=== PATIENT | female | born 1985 | race Two or more races ===

== ENCOUNTER 2024-08-15 06:58 | Emergency (ER) | payer MEDICAID, OTHER ==
[~2024-08-15] VITALS: Ht 157.5 cm; Wt 93.0 kg
[2024-08-15 07:36] VITALS: BP 133/92; PULSE 82; RESP 18; TEMP 97.9; O2SAT 98
--- NOTE | 2024-08-15 07:41 | ED.PDOC ---
Eye-HPI HPI Comments A 38 YEAR OLD FEMALE PRESENTS TO THE ED WITH COMPLAINT OF SORE THROAT AND BODY ACHES. PATIENT STATES SHE HAS BEEN EXPERIENCING A SORE THROAT AND BODY ACHES FOR THE PAST 2 DAYS. PATIENT DENIES FEVER, CHILLS, SHORTNESS OF BREATH, CHEST PAIN, ABDOMINAL PAIN, NAUSEA, VOMITING, HEADACHE, OR OTHER COMPLAINTS. NO OTHER SYMPTOMS OR MODIFYING FACTORS AT THIS TIME. PATIENT IS ALERT, ORIENTED X 4, AND HAS STEADY GAIT. Chief Complaint: Body Pain Time Seen by MD: 07:11 Reviewed Notes: Nurses Notes, Medications, Allergies Allergies: Coded Allergies: NO KNOWN ALLERGIES (Unverified , 08/15/24) Home Meds Active Scripts Ibuprofen (Ibuprofen) 800 Mg Tab, 1 TAB PO TID, #30 TAB Prov:EBONI HOLT 08/15/24 Azithromycin (Azithromycin) 500 Mg Tab, 1 TAB PO DAILY, #5 TAB Prov:EBONI HOLT 08/15/24 Information Source: Patient Mode of Arrival: Ambulatory Timing: Days Duration: Since onset, Days Prehospital treatment: None Quality: Pain, Red Lids: Normal Conjunctiva: Normal Cornea: Normal Pupils: Normal EOM: Normal Fundus: Normal Slit lamp exam: Normal Anterior chamber: Normal Mouth Location: Pharynx Mouth: Normal ENT Ear Exam: Normal, Normal, Normal Nose: Normal Sinuses: Normal Oropharynx: Tonsillar hypertrophy, Red Onset: Spontaneous Throat Exposed to: None History of: None Last Tetanus: Unknown Modifying factors: Nothing Associated signs and symptoms: Nasal Symptoms, Sore Throat Past Medical History PAST MEDICAL HISTORY: Denies Surgical History: Denies all surgeries FERMENTING CELLAR DROPPER History: No Pertinent FERMENTING CELLAR DROPPER History Family History Family History: Reviewed,noncontributory to illness Social History Smoker: Non-Smoker Alcohol: Denies ETOH Use Drugs: Denies Drug Use Lives In: Home Constitutional: denies: chills, diaphoresis, fatigue, fever, malaise, sweats, weakness, others EENTM: reports: throat pain, throat swelling, voice changes; denies: blurred vision, double vision, ear bleeding, ear discharge, ear drainage, ear pain, ear ringing, eye pain, eye redness, hearing loss, mouth pain, mouth swelling, nasal discharge, nose bleeding, nose congestion, nose pain, photophobia, tearing, others Respiratory: denies: hemoptysis, orthopnea, SOB at rest, shortness of breath, SOB with excertion, stridor, wheezing, others Cardiovascular: denies: chest pain, dizzy spells, diaphoresis, Dyspnea on exertion, edema, irregular heart beat, left arm pain, lightheadedness, palpitations, PND, syncope, others Gastrointestinal: denies: abdomen distended, abdominal pain, blood streaked bowels, constipated, diarrhea, dysphagia, difficulty swallowing, hematemesis, melena, nausea, poor appetite, poor fluid intake, rectal bleeding, rectal pain, vomiting, others Genitourinary: denies: abnormal vagina bleeding, burning, dyspareunia, dysuria, flank pain, frequency, hematuria, incontinence, pain, , vagina discharge, urgency, others Neurological: denies: dizziness, fainting, headache, left sided numbness, left sided weakness, numbness, paresthesia, pre-existing deficit, right sided numbness, right sided weakness, seizure, speech problems, tingling, tremors, w eakness, others Musculoskeletal: reports: muscle pain; denies: back pain, gout, joint pain, joint swelling, muscle stiffness, neck pain, others Integumetry: denies: bruises, change in color, change in hair/nails, dryness, laceration, lesions, lumps, rash, wounds, others Allergic/Immunocompromised: denies: Difficulty Healing, Frequent Infections, Hives, Itching, others Hematologic/Lymphatic: denies: anemia, blood clots, easy bleeding, easy bruising, swollen glands, others Endocrine: denies: excessive hunger, excessive sweating, excessive thirst, excessive urination, flushing, intolerance to cold, intolerance to heat, unexplained weight gain, unexplained weight loss, others Psychiatric: denies: anxiety, bipolar disorder, depression, hopeless, panic disorder, schizophrenia, sleepless, suicidal, others All Other Systems: Reviewed and Negative Physical Exam General Appearance: No Apparent Distress, Obese HEENT: PERRL/EOMI, Pharyngeal Erythema (TONSILLAR SWELLING, NO EXUDATES. ), TMs Normal Neck: Full Range of Motion, Non-Tender, Normal, Normal Inspection Respiratory: Chest Non-Tender, Expiration, No Accessory Muscle Use, No Respiratory Distress, Rhonchi Cardiovascular: No Edema, No JVD, No Murmur, No Gallop, Normal Peripheral Pulses, Regular Rate/Rhythm Breast Exam: Deferred Gastrointestinal: No Organomegaly, Non Tender, No Pulsatile Mass, Normal Bowel Sounds, Soft Genitalia: Deferred Pelvic: Deferred Rectal: Deferred Extremities: No calf tenderness, Normal capillary refill, Normal inspection, Normal range of motion, Non-tender, No pedal edema Musculoskeletal : Apperance: Normal Neurologic: Alert, 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 Was a procedure done?: No EENT DIFF Eye: N/A Ear: Otitis Media, Pharyngitis, Sinusitis Nose: N/A Mouth: N/A Sore Throat: Pharyngitis, Streptococcal, Viral Pharyngitis, URI X-Ray, Labs, Meds, VS Vital Signs Date Time Temp Pulse Resp B/P (MAP) Pulse Ox O2 Delivery O2 Flow Rate FiO2 08/15/24 07:36 82 18 98 Room Air 08/15/24 07:36 97.9 82 18 133/92 (106) 98 97.9 08/15/24 07:05 97.9 82 18 133/92 (106) 98 X-Ray, Labs, Meds, VS Comment EXTERNAL MEDICAL RECORDS REVIEWED: [NONE] INDEPENDENT HISTORIANS: [NONE] SOCIAL DETERMINANTS OF HEALTH: [NONE] LABS ORDERED: NONE REVIEWED AND INTERPRETED RESULTS: NONE IMAGING ORDERED: NONE TREATMENTS ORDERED: TORADOL 60MG IM PROCEDURES PERFORMED: NONE CRITICAL CARE TIME: NONE I HAVE DISCUSSED THE PATIENT WITH THE ATTENDING PHYSICIAN DR. DIAZ AND HE AGREES WITH THE PATIENT'S PLAN OF CARE AND DISPOSITION. BASED ON HISTORY OF PRESENT ILLNESS, AND PHYSICAL EXAM, PATIENT WILL BE DISCHARGED HOME. SHARED DECISION MAKING: PATIENT INSTRUCTED TO FOLLOW UP WITH PRIMARY CARE PROVIDER IN 1-2 DAYS FOR RE-EVALUATION OF SYMPTOMS. PATIENT VERBALIZES UNDERSTANDING TO RETURN TO ED FOR NEW OR WORSENING SYMPTOMS OR IF FOLLOW UP WITH PCP CANNOT BE OBTAINED. PATIENT FEELS COMFORTABLE GOING HOME AT THIS TIME. ALL QUESTIONS ADDRESSED AT TIME OF DISCHARGE. Time of 1ST Reevaluation: 08:00 Reevaluation 1ST: Improved Patient Education/Counseling: Diagnosis, Treatment, Need For Follow Up Family Education/Counseling: Diagnosis, Treatment, Need For Follow Up Medical Screening: No EMC Exist At This Time Departure 1 Departure Time of Disposition: 08:00 Impression: Primary Impression: Acute tonsillitis Qualified Codes: J03.90 - Acute tonsillitis, unspecified Disposition: HOME / SELF CARE / HOMELESS Condition: Stable Additional Instructions: FOLLOW-UP WITH PCP IN 1 TO 2 DAYS. TAKE MEDICATIONS PRESCRIBED. RETURN TO ED FOR ANY NEW OR WORSENING SYMPTOMS. e-Prescriptions Ibuprofen (Ibuprofen) 800 Mg Tab 1 TAB PO TID, #30 TAB Prov: EBONI HOLT 08/15/24 Azithromycin (Azithromycin) 500 Mg Tab 1 TAB PO DAILY, #5 TAB Prov: EBONI HOLT 08/15/24 Discharged With: Self Critical Care Note Critical Care Time?: No Stability Stability form required: No I personally scribed for EBONI HOLT ([email or web address]) on 08/15/24 at 07:41. Electronically submitted by Drew Tavares ([email or web address]). EBONI HOLT Aug 15, 2024 07:41
[2024-08-15] MEDS ORDERED: IBUP-1456 PO (07:43)
[2024-08-15] MEDS ORDERED: AZIT500T66 PO (07:43)
[2024-08-15] MEDS: KETOROLAC TROMETH 60MG/2ML VIAL IM ONE (07:49)
== END 2024-08-15 07:54 | disposition home or self-care (01) ==
LOC: ER 06:58
DX: J03.90 Acute tonsillitis, unspecified (principal); M79.10 Myalgia, unspecified site; Z79.1 Long term (current) use of non-steroidal anti-inflammatories (NSAID); Z79.2 Long term (current) use of antibiotics
CPT/HCPCS: 96372; 99283; J1885

== ENCOUNTER 2024-12-22 17:41 | Emergency (ER) | payer MEDICAID ==
[~2024-12-22] VITALS: Ht 157.5 cm; Wt 93.2 kg
[~2024-12-22 17:41] MED LIST: AZIT500T66 PO; IBUP-1456 PO
[2024-12-22 18:31] VITALS: BP 129/91; PULSE 87; RESP 17; TEMP 99.2; O2SAT 96
--- NOTE | 2024-12-22 19:08 | DVH ---
US OF THE RIGHT BREAST INDICATION: BREAST LUMP W/YELLOW DISCHARGE TECHNIQUE: Targeted ultrasound of the area of concern in the left upper outer breast COMPARISON: None FINDINGS: No solid or suspicious masses. No areas of architectural distortion. No malignant adenopathy. No dominant cysts are present. IMPRESSION: 1. There is no sonographic evidence for malignancy. 2. No large measurable fluid collection/abscess. No hyperemia 3. Consider correlation with nonemergent diagnostic mammogram. ACR Bi Rads Category:Category 0-"INCOMPLETE" (Needs Additional Imaging Evaluation))
--- NOTE | 2024-12-22 19:10 | ED.PDOC ---
REVENUE AGENT HPI Comments PT REPORTS LEFT BREAST PAIN ASSOCIATED WITH LUMP X 2 WEEKS, YELLOW DISCHARGE FRO M NIPPLE STARTED TODAY, PATIENT SHOWED PICTURE OF DRAINAGE IT WAS DARK YELLOW. DENIES FEVER, CHILLS, , NAUSEA, VOMITING, ABDOMINAL PAIN, CHEST PAIN OR SHORTNESS OF BREATH. Chief Complaint: Breast pain Time Seen by MD: 18:02 Reviewed Notes: Nurses Notes, Medications, Allergies Allergies: Coded Allergies: NO KNOWN ALLERGIES (Unverified , 08/15/24) Home Meds Active Scripts Doxycycline Hyclate (DOXYCYCLINE HYCLATE) 100 Mg Tab, 1 TAB PO BID for 7 Days, #14 TAB Prov:NICOLERAMON MADISON 12/22/24 Ibuprofen (Ibuprofen) 800 Mg Tab, 1 TAB PO TID, #30 TAB Prov:EBONI HOLT 08/15/24 Azithromycin (Azithromycin) 500 Mg Tab, 1 TAB PO DAILY, #5 TAB Prov:EBONI HOLT 08/15/24 Information Source: Patient Past Medical History PAST MEDICAL HISTORY: Denies Surgical History: Denies all surgeries BRICK UNLOADER TENDER History: No Pertinent BRICK UNLOADER TENDER History Family History Family History: Reviewed,noncontributory to illness Social History Smoker: Non-Smoker Alcohol: Denies ETOH Use Drugs: Denies Drug Use Lives In: Home Constitutional: denies: chills, diaphoresis, fatigue, fever, malaise, sweats, weakness, others EENTM: denies: blurred vision, double vision, ear bleeding, ear discharge, ear drainage, ear pain, ear ringing, eye pain, eye redness, hearing loss, mouth pain, mouth swelling, nasal discharge, nose bleeding, nose congestion, nose pain, photophobia, tearing, throat pain, throat swelling, voice changes, others Respiratory: denies: cough, hemoptysis, orthopnea, SOB at rest, shortness of breath, SOB with excertion, stridor, wheezing, others Cardiovascular: denies: chest pain, dizzy spells, diaphoresis, Dyspnea on exertion, edema, irregular heart beat, left arm pain, lightheadedness, palpitations, PND, syncope, others Gastrointestinal: denies: abdomen distended, abdominal pain, blood streaked bowels, constipated, diarrhea, dysphagia, difficulty swallowing, hematemesis, melena, nausea, poor appetite, poor fluid intake, rectal bleeding, rectal pain, vomiting, others Genitourinary: reports: others (BREAST LUMP AND PURULENT DRAINAGE); denies: abnormal vagina bleeding, burning, dyspareunia, dysuria, flank pain, frequency, hematuria, incontinence, pain, , vagina discharge, urgency Neurological: denies: dizziness, fainting, headache, left sided numbness, left sided weakness, numbness, paresthesia, pre-existing deficit, right sided numbness, right sided weakness, seizure, speech problems, tingling, tremors, weakness, others Musculoskeletal: denies: back pain, gout, joint pain, joint swelling, muscle pain, muscle stiffness, neck pain, others Integumetry: denies: bruises, change in color, change in hair/nails, dryness, laceration, lesions, lumps, rash, wounds, others Allergic/Immunocompromised: denies: Difficulty Healing, Frequent Infections, Hives, Itching, others Hematologic/Lymphatic: denies: anemia, blood clots, easy bleeding, easy bruising, swollen glands, others Endocrine: denies: excessive hunger, excessive sweating, excessive thirst, excessive urination, flushing, intolerance to cold, intolerance to heat, unexplained weight gain, unexplained weight loss, others Physical Exam General Appearance: No Apparent Distress, Normal HEENT: Pharynx Normal Neck: Full Range of Motion, Non-Tender Respiratory: Chest Non-Tender, Lungs Clear, No Respiratory Distress, Normal Breath Sounds Cardiovascular: No Edema, No JVD, No Murmur, No Gallop, Normal Peripheral Pulses, Regular Rate/Rhythm Breast Exam: Deferred Gastrointestinal: No Organomegaly, Non Tender, No Pulsatile Mass, Normal Bowel Sounds, Soft Genitalia: Deferred Pelvic: Deferred Rectal: Deferred Extremities: No calf tenderness, Normal capillary refill, Normal inspection, Normal range of motion, Non-tender, No pedal edema Musculoskeletal : Apperance: Normal Neurologic: Alert, 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 Was a procedure done?: No Differential Diagnosis (BRICK UNLOADER TENDER) Comments [facility] X-Ray, Labs, Meds, VS Vital Signs Date Time Temp Pulse Resp B/P (MAP) Pulse Ox O2 Delivery O2 Flow Rate FiO2 5/10/25 18:31 99.2 87 17 129/91 (104) 96 99.2 12/22/24 18:31 87 17 96 Room Air 12/22/24 17:51 99.2 87 17 129/91 (104) 96 99.2 Lab Test 12/22/24 19:07 Range/Units White Blood Count 10.8 4.4-10.8 10^3/uL Red Blood Count 4.79 4.0-5.20 10^6/uL Hemoglobin 14.1 12.2-16.2 g/dL Hematocrit 41.6 36.0-46.0 % Mean Corpuscular Volume 86.9 80.0-100.0 fL Mean Corpuscular Hemoglobin 29.5 28.0-32.0 pg Mean Corpuscular Hemoglobin Concent 33.9 32.0-36.0 g/dL Red Cell Distribution Width 13.3 11.8-14.3 % Platelet Count 231 140-450 10^3/uL Mean Platelet Volume 8.0 6.9-10.8 fL Neutrophils (%) (Auto) 59.3 37.0-80.0 % Lymphocytes (%) (Auto) 30.1 10.0-50.0 % Monocytes (%) (Auto) 6.1 0.0-12.0 % Eosinophils (%) (Auto) 3.8 0.0-7.0 % Basophils (%) (Auto) 0.7 0.0-2.0 % Neutrophils # (Auto) 6.4 1.6-8.6 10 ^3/uL Lymphocytes # (Auto) 3.2 0.4-5.4 10 ^3/uL Monocytes # (Auto) 0.7 0-1.3 10 ^3/uL Eosinophils # (Auto) 0.4 0-0.8 10 ^3/uL Basophils # (Auto) 0.1 0-0.2 10 ^3/uL Nucleated Red Blood Cells 0.1 % Sodium Level 141 136-145 mmol/L Potassium Level 3.7 3.5-5.1 mmol/L Chloride Level 105 98-107 mmol/L Carbon Dioxide Level 27 20-31 mmol/L Anion Gap 9 5-15 Blood Urea Nitrogen 12 9-23 mg/dL Creatinine 0.68 0.550-1.02 mg/dL Glomerular Filtration Rate Calc 114 >90 mL/min BUN/Creatinine Ratio 17.6 10.0-20.0 Serum Glucose 95 74-106 mg/dL Calcium Level 9.8 8.7-10.4 mg/dL Total Bilirubin 0.4 0.2-1.0 mg/dL Aspartate Amino Transferase (AST) 24 13-40 U/L Alanine Aminotransferase (ALT) 35 7-40 U/L Alkaline Phosphatase 55 46-116 U/L Total Protein 8.1 5.7-8.2 g/dL Albumin 4.8 3.2-4.8 g/dL X-Ray, Labs, Meds, VS Comment Ultrasound left breast shows no acute or chronic findings recommendation is outpatient mammogram.. Trial script of antibiotics possible infection. Take medications as prescribed side effects discussed.. Advised to follow up with her PCP in 2 days obtain a outpatient referral for a mammogram. ER return precautions given. Patient indicates understanding agrees with discharge plan of care Time of 1ST Reevaluation: 18:10 Reevaluation 1ST: Unchanged Patient Education/Counseling: Diagnosis, Treatment, Prognosis, Need For Follow Up Family Education/Counseling: No Family Present Departure 1 Departure Time of Disposition: 19:55 Impression: Primary Impression: Breast pain, right Additional Impression: Nipple discharge in female Disposition: 01 HOME / SELF CARE / HOMELESS Condition: Stable e-Prescriptions Doxycycline Hyclate (DOXYCYCLINE HYCLATE) 100 Mg Tab 1 TAB PO BID for 7 Days, #14 TAB Prov: RAMON RIVERA 12/22/24 Discharged With: Self Critical Care Note Critical Care Time?: No Stability Stability form required: RAMON Guzmán December 22, 2024 19:10
[2024-12-22 19:31] LABS: Basophils # (auto) 0.1 10 ^3/uL (0-0.2); Basophils % (auto) 0.7 % (0.0-2.0); Eosinophils # (auto) 0.4 10 ^3/uL (0-0.8); Eosinophils % (auto) 3.8 % (0.0-7.0); Hematocrit 41.6 % (36.0-46.0); Hemoglobin 14.1 g/dL (12.2-16.2); Lymphocytes # (auto) 3.2 10 ^3/uL (0.4-5.4); Lymphocytes % (auto) 30.1 % (10.0-50.0); Mean Corpuscular Hemoglobin 29.5 pg (28.0-32.0); Mean Corpuscular Hgb Conc. 33.9 g/dL (32.0-36.0); Mean Corpuscular Volume 86.9 fL (80.0-100.0); Monocytes # (auto) 0.7 10 ^3/uL (0-1.3); Monocytes % (auto) 6.1 % (0.0-12.0); Neutrophils # (auto) 6.4 10 ^3/uL (1.6-8.6); Neutrophils % (auto) 59.3 % (37.0-80.0); Nucleated Red Blood Cells % 0.1 %; Platelet Count (auto) 231 10^3/uL (140-450); Red Blood Cells 4.79 10^6/uL (4.0-5.20); Red Cell Distribution Width 13.3 % (11.8-14.3); White Blood Cell 10.8 10^3/uL (4.4-10.8)
[2024-12-22 19:48] LABS: Alanine Aminotransferase 35 U/L (7-40); Alkaline Phosphatase 55 U/L (46-116); Anion Gap 9 (5-15); Aspartate Aminotransferase 24 U/L (13-40); BUN/Creatinine Ratio 17.6 (10.0-20.0); Bilirubin, Total 0.4 mg/dL (0.2-1.0); Blood Urea Nitrogen 12 mg/dL (9-23); Calcium 9.8 mg/dL (8.7-10.4); Carbon Dioxide 27 mmol/L (20-31); Chloride 105 mmol/L (98-107); Glucose 95 mg/dL (74-106); Potassium 3.7 mmol/L (3.5-5.1); Sodium 141 mmol/L (136-145); Total Protein 8.1 g/dL (5.7-8.2)
[2024-12-22] MEDS ORDERED: DOXY-286 PO (19:56)
[2024-12-22 19:57] LABS: Albumin 4.8 g/dL (3.2-4.8)
== END 2024-12-22 20:05 | disposition home or self-care (01) ==
LOC: ER 17:41
DX: N64.52 Nipple discharge (principal); N63.20 Unspecified lump in the left breast, unspecified quadrant; Z79.1 Long term (current) use of non-steroidal anti-inflammatories (NSAID); Z79.899 Other long term (current) drug therapy
CPT/HCPCS: 36415; 76642; 80053; 85025

== ENCOUNTER 2025-05-05 21:38 | Emergency (ER) | payer MEDICAID ==
[~2025-05-05] VITALS: Ht 157.5 cm; Wt 82.0 kg
[2025-05-05 23:36] LABS: Hematocrit 39.8 % (36.0-46.0); Hemoglobin 13.2 g/dL (12.2-16.2); Mean Corpuscular Hemoglobin 28.6 pg (28.0-32.0); Mean Corpuscular Volume 86.2 fL (80.0-100.0); Nucleated Red Blood Cells % 0.2 %
--- NOTE | 2025-05-06 00:46 | DVH ---
US OF THE RIGHT BREAST INDICATION: l breast pain r/o abscess TECHNIQUE: All 4 quadrants, subareolar region and axillary region of the RIGHT breast were evaluated with ultrasound COMPARISON: None. FINDINGS: Targeted ultrasound of the left breast was performed Multiple complex fluid collections with surrounding hyperemia and inflammatory changes within the lat eral left breast, largest measuring 3.2 x 3.6 x 0.9 cm. IMPRESSION: Multiple left breast abscesses, largest measuring 3.6 cm.
[2025-05-06] MEDS ORDERED: CLIN1CAP70 PO (01:53)
--- NOTE | 2025-05-06 01:56 | ED.PDOC ---
History of Present Illness HPI Comments 39 y/o F presents with c/c left breast pain, with associated rash and redness. Patient reports 4x day history of symptoms. She states on symptoms following recent lump she discovered in her left breast in December 22, 2024. Denies any further acute symptoms. REVIEW OF SYSTEMS: General: No fever, no chills, or fatigue HEENT: No sore throat, no earache, no congestion, no neck pain. Cardiac: Chest pain. Hypertension.. No palpitations. Lungs: No shortness of breath, no cough. GI: No nausea, no vomiting, no diarrhea, no constipation, no abdominal pain : No dysuria, frequency, or urgency. No hematuria. Musculoskeletal: No joint pain , no joint swelling, no extremity edema. Skin: Left breast redness and rash, with associated pain. no itching. Neuro: No headache, no dizziness, no weakness PHYSICAL EXAM: General: Awake, alert and oriented. No acute distress. Skin: Skin in warm, dry and intact without rashes or lesions. HEENT: The head is normocephalic and atraumatic. Conjunctivae are clear without exudates or hemorrhage. Sclera is non-icteric. Neck: Normal range of motion. No JVD. Cardiac: Regular rate Respiratory: No signs of respiratory distress. No Stridor. Chest: Lateral Left breast with well circumcised area of erythema, tenderness, warmth. No palpable fluctuance or abscess. No discharge from the nipple. Neurological: The patient is awake, alert and oriented to person, place, and time with normal speech. Speech is clear. There is no facial asymmetry. Psychiatric: Appropriate mood and affect. Good judgement and insight. Chief Complaint: Breast pain Time Seen by MD: 00:53 Primary Care Provider: CHRISTINE Reviewed Notes: Nurses Notes, Medications, Allergies Allergies: Coded Allergies: Vancomycin (Verified Allergy, Severe, 05/08/25) Home Meds Active Scripts Polyethylene Glycol 3350 (Miralax) 17 Gm Pow, 17 GM PO DAILYP PRN, #10 POW 0 Refills Prov:JULIA ARAYA 05/09/25 Doxycycline Monohydrate (Doxycycline Monohydrate) 100 Mg Cap, 1 CAP PO BID, #14 CAP Prov:EMILE PARRISH MD 05/09/25 Amoxicillin & Pot Clavulanate (AUGMENTIN TABLET) 875 Mg Tb, 875 MG PO BID for 7 Days, #14 TAB Prov:EMILE PARRISH MD 05/09/25 Reported Medications Pktam-4-Qfaw Ethyl Esters (Utmrw-0-Jdhr Ethyl Esters) 1 Gm Cap, 2 CAP PO DAILY 05/07/25 Ergocalciferol (Vitamin D) 50,000 Unit Cap, 1 CAP PO QWEEKLY 05/07/25 Tirzepatide (Zepbound) 5 Mg/0.5 Ml Inj, 5 MG SC QWEEKLY 05/07/25 Information Source: Patient Mode of Arrival: Ambulatory Past Medical History PAST MEDICAL HISTORY: Denies Surgical History: Denies all surgeries ROUGH ROUNDER MACHINE History: No Pertinent ROUGH ROUNDER MACHINE History Family History Family History: Reviewed,noncontributory to illness Social History Smoker: Non-Smoker Alcohol: Denies ETOH Use Drugs: Denies Drug Use Lives In: Home Was a procedure done? Was a procedure done?: No Differential Dx Considerations may include: abscess X-Ray, Labs, Meds, VS Vital Signs Date Time Temp Pulse Resp B/P (MAP) Pulse Ox O2 Delivery O2 Flow Rate FiO2 05/06/25 02:31 71 18 96 Room Air 05/06/25 02:31 97.7 71 18 117/78 (91) 96 97.7 05/05/25 21:59 99.4 72 16 123/75 96 99.4 Lab Test 05/05/25 23:21 Range/Units White Blood Count 11.6 H 4.4-10.8 10^3/uL Red Blood Count 4.61 4.0-5.20 10^6/uL Hemoglobin 13.2 12.2-16.2 g/dL Hematocrit 39.8 36.0-46.0 % Mean Corpuscular Volume 86.2 80.0-100.0 fL Mean Corpuscular Hemoglobin 28.6 28.0-32.0 pg Mean Corpuscular Hemoglobin Concent 33.2 32.0-36.0 g/dL Red Cell Distribution Width 13.5 11.8-14.3 % Platelet Count 265 140-450 10^3/uL Mean Platelet Volume 8.2 6.9-10.8 fL Neutrophils (%) (Auto) 61.6 37.0-80.0 % Lymphocytes (%) (Auto) 29.0 10.0-50.0 % Monocytes (%) (Auto) 6.0 0.0-12.0 % Eosinophils (%) (Auto) 2.7 0.0-7.0 % Basophils (%) (Auto) 0.7 0.0-2.0 % Neutrophils # (Auto) 7.1 1.6-8.6 10 ^3/uL Lymphocytes # (Auto) 3.4 0.4-5.4 10 ^3/uL Monocytes # (Auto) 0.7 0-1.3 10 ^3/uL Eosinophils # (Auto) 0.3 0-0.8 10 ^3/uL Basophils # (Auto) 0.1 0-0.2 10 ^3/uL Nucleated Red Blood Cells 0.2 % [place] [address] Ph: [phone] DIAGNOSTIC IMAGING Diagnostic Imaging Report : [id number] Signed PATIENT: DRU HALL ACCT: [id number] UNIT: [id number] : 1985 LOC: ER ROOM / BED: / AGE / SEX: 39 / F ADM STATUS: REG ER SERVICE 32 ORDERING PHYSICIAN: NAYANA ORNELAS MD PROCEDURE(s): LBRST - L BREAST ULTRASOUND REASON: l breast pain r/o abscess ORDER NUMBER(s): [id number], ACCESSION NUMBER(s): [id number] US OF THE RIGHT BREAST INDICATION: l breast pain r/o abscess TECHNIQUE: All 4 quadrants, subareolar region and axillary region of the RIGHT breast were evaluated with ultrasound COMPARISON: None. FINDINGS: Targeted ultrasound of the left breast was performed Multiple complex fluid collections with surrounding hyperemia and inflammatory changes within the lateral left breast, largest measuring 3.2 x 3.6 x 0.9 cm. IMPRESSION: Multiple left breast abscesses, largest measuring 3.6 cm. ATED BY: AV ARANGO MD DICTATED DATE/TIME: 05/06/2542 SIGNED BY: AV ARANGO MD SIGNED DATE/TIME: 05/06/2542 CC: Time of 1ST Reevaluation: 01:20 Reevaluation 1ST: Unchanged Patient Education/Counseling: Need For Follow Up Family Education/Counseling: No Family Present SEPSIS Sepsis Screen Date sepsis recognized/suspect: May 05, 2025 Time Sepsis recognized/suspect: 2200 Recent Procedure: No On Antibiotic Therapy: No Respiratory Rate >20: No Heart Rate >90: No Temp<36 C (96.8 F) or >38.3 C: No SBP <90 or MAP <65 mmHG: No New Acute Mental Status Change: No Is the patient on CPAP, BIPAP,: No Physician Orders L Breast Ultrasound (05/05/25 22:33) Vital Signs Date Time Temp Pulse Resp B/P (MAP) Pulse Ox O2 Delivery O2 Flow Rate FiO2 05/06/25 02:31 71 18 96 Room Air 05/06/25 02:31 97.7 71 18 117/78 (91) 96 97.7 05/05/25 21:59 99.4 72 16 123/75 96 99.4 Laboratory Tests Test 05/05/25 23:21 White Blood Count 11.6 10^3/uL (4.4-10.8) H Departure 1 Departure Time of Disposition: 01:49 Impression: Primary Impression: Left breast abscess Additional Impression: Cellulitis of left breast Disposition: 01 HOME / SELF CARE / HOMELESS Condition: Stable Additional Instructions: ED DISCHARGE INSTRUCTIONS Instructions: Please read all instructions provided in this packet carefully. Although you have been discharged from the Emergency Department, this does not mean that you have a "clean bill of health". It is possible that you are in the process of developing a serious illness. This is why you must return to the ED without fail if any new or worsening symptoms (especially if your symptoms include chest pain, trouble breathing, abdominal pain, fever, headache, confusion, trouble seeing, or trouble walking) It is also very important that you see a primary care provider (PCP) within the next 3-5 days to follow up. You may need a referral from your primary care provider to see a specialist to have the abscess drained. Copy of your ultrasound report is included below. If you are unable to get an appointment, return to the ED for re-evaluation. Breast Abscess: Care Instructions Overview An abscess is a pocket of pus formed by infection. Breast abscesses are most common during . You can usually continue to breastfeed your baby in spite of a breast abscess. It will not harm your baby. If your doctor advises you to stop on the affected breast while it heals, you can continue from the healthy breast. Sometimes antibiotics are used to treat a breast abscess. If antibiotics do not cure the abscess, it may need to be drained through a small cut (incision). You may have had a sedative to help you relax. You may be unsteady after having sedation. It can take a few hours for the medicine's effects to wear off. Common side effects of sedation include nausea, vomiting, and feeling sleepy or tired. The doctor has checked you carefully, but problems can develop later. If you notice any problems or new symptoms, get medical treatment right away. Follow-up care is a gallardo part of your treatment and safety. Be sure to make and go to all appointments, and call your doctor if you are having problems. It's also a good idea to know your test results and keep a list of the medicines you take. How can you care for yourself at home? If the doctor gave you a sedative: For 24 hours, don't do anything that requires attention to detail. This includes going to work, making important decisions, and signing any legal documents. It takes time for the medicine's effects to completely wear off. For your safety, do not drive or operate any machinery that could be dangerous. Wait until the medicine wears off and you can think clearly and react easily. If your doctor prescribed antibiotics, take them as directed. Do not stop taking them just because you feel better. You need to take the full course of antibiotics. If your doctor drained the abscess, you may have a tube or gauze in the abscess to allow it to continue draining. Follow your doctor's instructions on bathing and caring for the wound. If you are , continue to regularly breastfeed when your baby is hungry. If you use a breast pump, continue to pump when you need to. But avoid pumping extra. It may cause more inflammation. Your doctor may tell you to discard the milk from the affected breast until the abscess heals. Try feeding from the healthy breast. Then, after your milk is flowing, breastfeed from the affected breast until it feels soft. Hand-express a small amount of breast milk before if your breasts are too full with milk. This will make your breasts less full and may make it easier for your baby to latch on to your breast. Try using a cold compress on your breast to reduce pain and swelling. Put ice or a cold pack on the area for 10 to 20 minutes at a time. Put a thin cloth between the ice and your skin. Be safe with medicines. Read and follow all instructions on the label. If you are not taking a prescription pain medicine, ask your doctor if you can take an [id number] medicine. If your doctor gave you a prescription medicine for pain, take it as prescribed. Store your prescription pain medicines where no one else can get to them. When you are done using them, dispose of them quickly and safely. Your local pharmacy or hospital may have a drop-off site. Do not take two or more pain medicines at the same time unless your doctor told you to. Many pain medicines have acetaminophen, which is Tylenol. Too much acetaminophen (Tylenol) can be harmful. If pus is draining from your infected breast, wash the nipple gently and let it air-dry before you put your bra back on. A disposable breast pad placed in the b ra cup will help absorb the pus. When should you call for help? Call 911 anytime you think you may need emergency care. For example, call if: You have trouble breathing. You passed out (lost consciousness). Call your doctor now or seek immediate medical care if: You have new or worse nausea or vomiting. You have new or worsening symptoms of breast inflammation or infection, such as: Increased pain, swelling, warmth, redness, or a color change on your breast. Red streaks extending from the breast. Pus draining from a breast. A fever. Watch closely for changes in your health, and be sure to contact your doctor if: You do not get better as expected. Credits for Breast Abscess: Care Instructions Current as of: December 17, 2024 Author: [employer] Staff Clinical Review Board All [employer] education is reviewed by a team that includes physicians, nurses, advanced practitioners, registered dieticians, and other healthcare professionals. IMPORTANT WARNING: Many antibiotics, including clindamycin, may cause overgrowth of dangerous bacteria in the large intestine. This may cause mild diarrhea or may cause a life-threatening condition called colitis (inflammation of the large intestine). Clindamycin is more likely to cause this type of infection than many other antibiotics, so it should only be used to treat serious infections that cannot be treated by other antibiotics. Tell your doctor if you have or have ever had colitis or other conditions that affect your stomach or intestines. You may develop these problems during your treatment or up to several months after your treatment has ended. Call your doctor if you experience any of the following symptoms during your treatment with clindamycin or during the first several months after your treatment has finished: watery or bloody stools, diarrhea, stomach cramps, or fever. Talk to your doctor about the risks of taking clindamycin. PROCEDURE(s): LBRST - L BREAST ULTRASOUND REASON: l breast pain r/o abscess ORDER NUMBER(s): [id number], ACCESSION NUMBER(s): [id number] US OF THE RIGHT BREAST INDICATION: l breast pain r/o abscess TECHNIQUE: All 4 quadrants, subareolar region and axillary region of the RIGHT breast were evaluated with ultrasound COMPARISON: None. FINDINGS: Targeted ultrasound of the left breast was performed Multiple complex fluid collections with surrounding hyperemia and inflammatory changes within the lateral left breast, largest measuring 3.2 x 3.6 x 0.9 cm. IMPRESSION: Multiple left breast abscesses, largest measuring 3.6 cm. Comments A 39-year-old female with 4 days of left breast redness, tenderness. Discussed results with the patient. Patient was offered admission for further treatment, observation and evaluation. She is declining drainage of abscess at this time. She would like to try course of antibiotics. Discussed risks, benefits and return precautions with the patient. The patient is declined admission and is requesting to be discharged home to follow up with the primary care provider as an outpatient. Critical Care Note Critical Care Time?: No Stability Stability form required: No Heart Score Heart Score: Heart Score Response (Comments) Value History N/A 0 EKG N/A 0 Age N/A 0 Risk Factors N/A 0 Troponin N/A 0 Total 0 I personally scribed for NAYANA ORNELAS MD ([email or web address]) on 05/06/25 at 07:11. Electronically submitted by Liban Francisco ([email or web address]). NAYANA ORNELAS MD May 06, 2025 01:56
[2025-05-06] MEDS: CLINDAMYCIN HCL 150 MG CAP PO ONE (02:28)
[2025-05-06 02:31] VITALS: BP 117/78; PULSE 71; RESP 18; TEMP 97.7; O2SAT 96
[2025-05-07] MEDS ORDERED: ERGO1CAP12 PO (05:48)
[2025-05-07] MEDS ORDERED: OMEG-86 PO (05:48)
[2025-05-07] MEDS ORDERED: TIRZ5INJ2 SC (05:48)
== END 2025-05-06 02:31 | disposition home or self-care (01) ==
LOC: ER 21:38
DX: N61.1 Abscess of the breast and nipple (principal); N61.0 Mastitis without abscess
CPT/HCPCS: 36415; 76642; 85025

== ENCOUNTER 2025-05-06 17:52 | Inpatient (IN) | payer MEDICAID ==
[~2025-05-06] VITALS: Ht 157.5 cm; Wt 87.7 kg
[~2025-05-06 17:52] MED LIST changes: +CLIN1CAP70 PO
--- NOTE | 2025-05-06 18:54 | ED.PDOC ---
History of Present Illness(SKN HPI Comments This is a 39 year old female presenting to the ED with chief complaint of persistent left breast pain. Patient reports that she was seen in the ED last night where she was diagnosed with multiple abscesses to her left breast and was prescribed oral Clindamycin. Patient relays that she followed up with her PCP today and was advised to come back to the ED for IV antibiotic treatment and surgical evaluation. Patient states that her pain and redness has continued to worsen over time. Patient notes that she currently has a "tracker" placed in her left breast due to a previously diagnosed breast mass that is being monitored and has had a previous infection in the same area. Patient denies any chest pain, SOB, fever, chills, or discharge. Chief Complaint: Breast pain Time Seen by MD: 18:50 Primary Care Provider: CHRISTINE History of Present Illness: Nurses Notes, Medications, Allergies Allergies: Coded Allergies: NO KNOWN ALLERGIES (Unverified , 08/15/24) Home Meds Active Scripts Clindamycin Hcl (Clindamycin Hcl) 300 Mg Cap, 1 CAP PO TID, #30 CAP Prov:NAYANA ORNELAS MD 05/06/25 Ibuprofen (Ibuprofen) 800 Mg Tab, 1 TAB PO TID, #30 TAB Prov:EBONI HOLT 08/15/24 Azithromycin (Azithromycin) 500 Mg Tab, 1 TAB PO DAILY, #5 TAB Prov:EBONI HOLT 08/15/24 Information Source: Patient Mode of Arrival: Ambulatory Severity: Moderate Timing: Days Duration: Since onset Prehospital treatment: None Location: Chest Mechanism: Spontaneous Onset Wound Type: Abscess Tetanus: UTD Past Medical History Past Medical History (Other): Previous left breast cellulitis Surgical History (Other): Laser vein ablation, left breast marker insertion RETAIL LOSS PREVENTION SPECIALIST History: No Pertinent RETAIL LOSS PREVENTION SPECIALIST History Family History Family History: Reviewed,noncontributory to illness Social History Smoker: Non-Smoker Alcohol: Denies ETOH Use Drugs: Denies Drug Use Lives In: Home Constitutional: denies: chills, diaphoresis, fatigue, fever, malaise, sweats, weakness, others EENTM: denies: blurred vision, double vision, ear bleeding, ear discharge, ear drainage, ear pain, ear ringing, eye pain, eye redness, hearing loss, mouth pain, mouth swelling, nasal discharge, nose bleeding, nose congestion, nose pain, photophobia, tearing, throat pain, throat swelling, voice changes, others Respiratory: denies: cough, hemoptysis, orthopnea, SOB at rest, shortness of breath, SOB with excertion, stridor, wheezing, others Cardiovascular: denies: chest pain, dizzy spells, diaphoresis, Dyspnea on exertion, edema, irregular heart beat, left arm pain, lightheadedness, palpitations, PND, syncope, others Gastrointestinal: denies: abdomen distended, abdominal pain, blood streaked bowels, constipated, diarrhea, dysphagia, difficulty swallowing, hematemesis, melena, nausea, poor appetite, poor fluid intake, rectal bleeding, rectal pain, vomiting, others Genitourinary: denies: abnormal vagina bleeding, burning, dyspareunia, dysuria, flank pain, frequency, hematuria, incontinence, pain, , vagina discharge, urgency, others Neurological: denies: dizziness, fainting, headache, left sided numbness, left sided weakness, numbness, paresthesia, pre-existing deficit, right sided numbness, right sided weakness, seizure, speech problems, tingling, tremors, weakness, others Musculoskeletal: reports: others (Left breast pain and redness); denies: back pain, gout, joint pain, joint swelling, muscle pain, muscle stiffness, neck pain Integumetry: denies: bruises, change in color, change in hair/nails, dryness, laceration, lesions, lumps, rash, wounds, others Allergic/Immunocompromised: denies: Difficulty Healing, Frequent Infections, Hives, Itching, others Hematologic/Lymphatic: denies: anemia, blood clots, easy bleeding, easy bruising, swollen glands, others Endocrine: denies: excessive hunger, excessive sweating, excessive thirst, excessive urination, flushing, intolerance to cold, intolerance to heat, unexplained weight gain, unexplained weight loss, others Psychiatric: denies: anxiety, bipolar disorder, depression, hopeless, panic disorder, schizophrenia, sleepless, suicidal, others All Other Systems: Reviewed and Negative Physical Exam General Appearance: No Apparent Distress HEENT: Other (Pupils and face symmetric. Moist mucous membranes.) Neck: Full Range of Motion, Normal Inspection Respiratory: Lungs Clear, No Accessory Muscle Use, No Respiratory Distress, Normal Breath Sounds Cardiovascular: No Edema, No JVD, Regular Rate/Rhythm Breast Exam: (L) Mass, (L) Tenderness, Other (Left breast erythema, induration and tenderness between the 12 o'clock and 3 o'clock position. No discharge.) Gastrointestinal: Non Tender, Soft Genitalia: Deferred Pelvic: Deferred Rectal: Deferred Extremities: Normal inspection, Normal range of motion, Non-tender, No pedal edema Neurologic: Alert (Oriented x4), Normal Affect, Normal Mood, Other (Ambulatory) Cerebellar Function: NOT DONE Reflexes: NOT DONE Skin: Dry, Warm, Other (Depressed erythema, induration and tenderness as above) Lymphatic: NOT DONE Was a procedure done? Was a procedure done?: No Differential Diagnosis (INTG) Differential Diagnosis: Abscess, Cellulitis, Other (Sepsis, among other) X-Ray, Labs, Meds, VS Vital Signs Date Time Temp Pulse Resp B/P (MAP) Pulse Ox O2 Delivery O2 Flow Rate FiO2 05/06/25 17:55 98.8 83 16 126/68 97 98.8 Lab Test 05/06/25 18:57 05/06/25 18:51 Range/Units Lactic Acid Level 0.9 0.4-2.0 mmol/L White Blood Count 9.9 4.4-10.8 10^3/uL Red Blood Count 4.49 4.0-5.20 10^6/uL Hemoglobin 13.1 12.2-16.2 g/dL Hematocrit 38.2 36.0-46.0 % Mean Corpuscular Volume 85.1 80.0-100.0 fL Mean Corpuscular Hemoglobin 29.3 28.0-32.0 pg Mean Corpuscular Hemoglobin Concent 34.4 32.0-36.0 g/dL Red Cell Distribution Width 13.2 11.8-14.3 % Platelet Count 273 140-450 10^3/uL Mean Platelet Volume 8.4 6.9-10.8 fL Neutrophils (%) (Auto) 63.6 37.0-80.0 % Lymphocytes (%) (Auto) 27.0 10.0-50.0 % Monocytes (%) (Auto) 6.0 0.0-12.0 % Eosinophils (%) (Auto) 2.7 0.0-7.0 % Basophils (%) (Auto) 0.7 0.0-2.0 % Neutrophils # (Auto) 6.3 1.6-8.6 10 ^3/uL Lymphocytes # (Auto) 2.7 0.4-5.4 10 ^3/uL Monocytes # (Auto) 0.6 0-1.3 10 ^3/uL Eosinophils # (Auto) 0.3 0-0.8 10 ^3/uL Basophils # (Auto) 0.1 0-0.2 10 ^3/uL Nucleated Red Blood Cells 0.0 % Sodium Level 141 136-145 mmol/L Potassium Level 3.6 3.5-5.1 mmol/L Chloride Level 104 98-107 mmol/L Carbon Dioxide Level 27 20-31 mmol/L Anion Gap 10 5-15 Blood Urea Nitrogen 6 L 9-23 mg/dL Creatinine 0.75 0.550-1.02 mg/dL Glomerular Filtration Rate Calc 104 >90 mL/min BUN/Creatinine Ratio 8.0 L 10.0-20.0 Serum Glucose 96 74-106 mg/dL Calcium Level 9.4 8.7-10.4 mg/dL X-Ray, Labs, Meds, VS Comment 39-year-old female with a history of left breast marker implantation and previous left breast cellulitis referred back to ER by primary doctor for re- evaluation of left breast abscesses diagnosed yesterday Vitals unremarkable Exam remarkable for left breast erythema, induration and tenderness between the 12 o'clock and 3 o'clock position Rhythm strip independently interpreted by me: Sinus rhythm, rate 83, no ectopy. Left breast ultrasound performed on 05/05/2025: PROCEDURE(s): LBRST - L BREAST ULTRASOUND REASON: l breast pain r/o abscess ORDER NUMBER(s): [id number], ACCESSION NUMBER(s): [id number] US OF THE RIGHT BREAST INDICATION: l breast pain r/o abscess TECHNIQUE: All 4 quadrants, subareolar region and axillary region of the RIGHT breast were evaluated with ultrasound COMPARISON: None. FINDINGS: Targeted ultrasound of the left breast was performed Multiple complex fluid collections with surrounding hyperemia and inflammatory changes within the lateral left breast, largest measuring 3.2 x 3.6 x 0.9 cm. IMPRESSION: Multiple left breast abscesses, largest measuring 3.6 cm. , basic metabolic panel and lactate unremarkable Patient treated with the following in the ED: Zosyn 4.5 g IV, Jefferson 5/325 mg p.o. On re-evaluation, pain has improved and vitals were stable. Plan is to admit the patient for IV antibiotics and surgical and/or IR evaluation. Time of 1ST Reevaluation: 19:49 Reevaluation 1ST: Unchanged Patient Education/Counseling: Diagnosis, Treatment Family Education/Counseling: No Family Present SEPSIS Sepsis Screen Date sepsis recognized/suspect: May 06, 2025 Time Sepsis recognized/suspect: 1754 Recent Procedure: No On Antibiotic Therapy: Yes (1 DOSE) Respiratory Rate >20: No Heart Rate >90: No Temp<36 C (96.8 F) or >38.3 C: No SBP <90 or MAP <65 mmHG: No New Acute Mental Status Change: No Is the patient on CPAP, BIPAP,: No SEPSIS EXCLUSION NOTE: Sepsis Exclusion Note: Patient presents with SIRS criteria, but the SIRS response is attributed to [left breast abscess/cellulitis ], not sepsis. Sepsis bundle is not initiated at this time, due to this reason. Further management will focus on the treatment of the above condition (s). Physician Orders Urinalysis (05/06/25 18:29) Blood Culture (05/06/25 18:29) Vital Signs Date Time Temp Pulse Resp B/P (MAP) Pulse Ox O2 Delivery O2 Flow Rate FiO2 05/06/25 17:55 98.8 83 16 126/68 97 98.8 Laboratory Tests Test 05/06/25 18:51 05/06/25 18:57 White Blood Count 9.9 10^3/uL (4.4-10.8) Lactic Acid Level 0.9 mmol/L (0.4-2.0) Departure 1 Departure Time of Disposition: 20:38 Impression: Primary Impression: Left breast abscess Additional Impression: Cellulitis of left breast Disposition: 09 ADMITTED INPATIENT Admit to: Med Surg Condition: Fair Critical Care Note Critical Care Time?: No Stability Stability form required: No Heart Score Heart Score: Heart Score Response (Comments) Value History N/A 0 EKG N/A 0 Age N/A 0 Risk Factors N/A 0 Troponin N/A 0 Total 0 I personally scribed for FITO VALENTIN MD ([email or web address]) on 05/06/25 at 18:54. Electronically submitted by Jovany Estevez ([email or web address]). FITO VALENTIN MD May 06, 2025 18:54
[2025-05-06 19:15] LABS: Hematocrit 38.2 % (36.0-46.0); Hemoglobin 13.1 g/dL (12.2-16.2); Mean Corpuscular Hemoglobin 29.3 pg (28.0-32.0); Mean Corpuscular Volume 85.1 fL (80.0-100.0); Nucleated Red Blood Cells % 0.0 %
[2025-05-06 19:21] LABS: Chloride 104 mmol/L (98-107); Potassium 3.6 mmol/L (3.5-5.1); Sodium 141 mmol/L (136-145)
[2025-05-06 19:22] LABS: Anion Gap 10 (5-15); Carbon Dioxide 27 mmol/L (20-31)
[2025-05-06 19:23] LABS: Calcium 9.4 mg/dL (8.7-10.4)
[2025-05-06 19:27] LABS: BUN/Creatinine Ratio 8.0 (10.0-20.0); Glucose 96 mg/dL (74-106)
[2025-05-06 19:28] LABS: Blood Urea Nitrogen 6 mg/dL (9-23)
--- NOTE | 2025-05-06 23:11 | DVHHPRES ---
History of Present Illness Resident Creating Document: ISADORA ROBLERO RESIDENT History of Present Illness This is a 39 year old female, with significant past medical history of benign breast mass, presented to the ER with chief complain of left breast pain and swelling. She first started having breast pain in December this year, associated with a breast mass and purulent discharge from her nipple. An ultrasound in bilateral mammogram was done revealing a mass, US guided FNA showed benign mass in February 2025. During the workup a tracker was left in place. The patient developed FNA site infection for which she received topical mupirocin. Since last one week, she started complaining of worsening breast pain, which she described as burning, sharp, 7/10, intermittent, radiating from upper outer quadrant to the nipple area. Her pain worsened 2 days back, associated with progressively increasing size of her breast mass, for which she presented to the ER yesterday. She reports she underwent ultrasound revealing breast abscess and was advised IV antibiotics and surgical consultation, patient requested conservative route with oral antibiotics and was sent home with oral cephalexin for 7 days. Due to worsening pain and swelling she presented today to the ER. She also reported increasing size of mass with associated erythema. No purulent discharge or bloody discharge from nipple reported. She denied , or breast trauma. PMHx: Benign left breast mass PSHx: No significant surgical history Family history: Significant for breast cancer in maternal grandmother, leukemia in a paternal grand mother, uterine and ovarian cancer- father's sister Social history: Occasional alcohol use, marijuana (last used few years back). Lives in home with family. LMP 04/11/2025. Full code. next of kin. Home medication: Zepbound, vitamin-D, [place] 3 fatty acid, mupirocin Allergic history: No allergies reported Patient was examined at bedside today. She continues to complain of left breast pain, swelling and redness. Patient is admitted for further management. Family History: Cancer Smoke: No ALCOHOL: occassional Drugs: Marijuana Lives: with Family Review of Systems Constitutional: Yes: Chills Skin: Other Other Left breast: Swelling, erythema, pain Allergies: Coded Allergies: NO KNOWN ALLERGIES (Unverified , 08/15/24) Exam Vital Signs Vital Signs Date Time Temp Pulse Resp B/P (MAP) Pulse Ox O2 Delivery O2 Flow Rate FiO2 05/06/25 17:55 98.8 83 16 126/68 97 98.8 Exam General: Patient alert and oriented in person, place and time. Patient following commands. HEENT: Normocephalic, atraumatic, dry mucous membranes Respiratory/pulmonary: Clear lungs bilaterally, vesicular murmurs present in almost all lung manning, no associated crackles or wheezes. Cardiovascular: Normal heart sounds S1 and S2 with no associated murmurs Abdomen: Abdomen nondistended, there is no pain to palpation in any of the abdominal quadrants, no palpable masses. Extremities: There is no peripheral edema present at the lower extremities. Peripheral Pulses: 3+ Radial (R). 3+ Radial (L). 3+ Dorsalis pedis (R). 3+ Dorsalis pedis(L) Neurological: Intact cranial nerves with no focal neurologic deficits Breast exam: Left breast-upper outer quadrant erythema, elevated temperature, irregular firm mass, tender to palpation. No discharge from nipples seen. No palpable axillary lymph nodes. Labs/Xrays Labs Test 05/06/25 18:57 05/06/25 18:51 Range/Units Lactic Acid Level 0.9 0.4-2.0 mmol/L White Blood Count 9.9 4.4-10.8 10^3/uL Red Blood Count 4.49 4.0-5.20 10^6/uL Hemoglobin 13.1 12.2-16.2 g/dL Hematocrit 38.2 36.0-46.0 % Mean Corpuscular Volume 85.1 80.0-100.0 fL Mean Corpuscular Hemoglobin 29.3 28.0-32.0 pg Mean Corpuscular Hemoglobin Concent 34.4 32.0-36.0 g/dL Red Cell Distribution Width 13.2 11.8-14.3 % Platelet Count 273 140-450 10^3/uL Mean Platelet Volume 8.4 6.9-10.8 fL Neutrophils (%) (Auto) 63.6 37.0-80.0 % Lymphocytes (%) (Auto) 27.0 10.0-50.0 % Monocytes (%) (Auto) 6.0 0.0-12.0 % Eosinophils (%) (Auto) 2.7 0.0-7.0 % Basophils (%) (Auto) 0.7 0.0-2.0 % Neutrophils # (Auto) 6.3 1.6-8.6 10 ^3/uL Lymphocytes # (Auto) 2.7 0.4-5.4 10 ^3/uL Monocytes # (Auto) 0.6 0-1.3 10 ^3/uL Eosinophils # (Auto) 0.3 0-0.8 10 ^3/uL Basophils # (Auto) 0.1 0-0.2 10 ^3/uL Nucleated Red Blood Cells 0.0 % Sodium Level 141 136-145 mmol/L Potassium Level 3.6 3.5-5.1 mmol/L Chloride Level 104 98-107 mmol/L Carbon Dioxide Level 27 20-31 mmol/L Anion Gap 10 5-15 Blood Urea Nitrogen 6 L 9-23 mg/dL Creatinine 0.75 0.550-1.02 mg/dL Glomerular Filtration Rate Calc 104 >90 mL/min BUN/Creatinine Ratio 8.0 L 10.0-20.0 Serum Glucose 96 74-106 mg/dL Calcium Level 9.4 8.7-10.4 mg/dL SEPSIS Sepsis Screen Date sepsis recognized/suspect: May 06, 2025 Time Sepsis recognized/suspect: 1754 Recent Procedure: No On Antibiotic Therapy: Yes (1 DOSE) Respiratory Rate >20: No Heart Rate >90: No Temp<36 C (96.8 F) or >38.3 C: No SBP <90 or MAP <65 mmHG: No New Acute Mental Status Change: No Is the patient on CPAP, BIPAP,: No Physician Orders Urinalysis (05/06/25 18:29) Blood Culture (05/06/25 18:29) Ammonia (05/06/25 22:41) C-Reactive Protein (05/06/25 22:41) Complete Blood Count (05/07/25 04:00) Basic Metabolic Panel (05/07/25 04:00) Drug Screen (05/06/25 22:41) Hemoglobin A1c (05/06/25 22:41) Lipase (05/06/25 22:41) Lipid Panel (05/06/25 22:41) Magnesium (05/06/25 22:41) Phosphorus (05/06/25 22:41) PTPTT (05/06/25 22:41) Thyroid Stimulating Hormone (05/06/25 22:41) Vitamin B12 (05/06/25 22:41) Vitamin D, 25-Hydroxy (05/06/25 22:41) Test, Urine (05/06/25 22:43) Admit (05/06/25 23:07) Allergies (05/06/25 23:07) Code Status (05/06/25 23:07) 0.9% Ns 1000 Ml (05/06/25 23:15) Acetaminophen Tablet (Tylenol Tablet) (05/06/25 23:15) Ondansetron Hcl (Zofran) (05/06/25 23:15) Ascorbic Acid Tablet (Vitamin C Tablet) (05/07/25 10:00) Multiple Vitamin Tablet (Mvi Tab) (05/07/25 10:00) Comprehensive Metabolic Panel (05/07/25 04:00) Npo (Nothing By Mouth) Diet (05/07/25 Breakfast) Condition: Serious (05/06/25 23:07) Morphine Sulfate Injection (05/06/25 23:15) Lovenox 40mg (05/06/25 23:15) Stat Ekg For Chest Pain (05/06/25 23:07) Notify Md Of Changes From Base (05/06/25 23:07) Vital Signs Date Time Temp Pulse Resp B/P (MAP) Pulse Ox O2 Delivery O2 Flow Rate FiO2 05/06/25 17:55 98.8 83 16 126/68 97 98.8 Laboratory Tests Test 05/06/25 18:51 05/06/25 18:57 White Blood Count 9.9 10^3/uL (4.4-10.8) Lactic Acid Level 0.9 mmol/L (0.4-2.0) Assessment/Plan Assessment/Plan Left Breast abscess Left breast Breast cellulitis Benign breast mass Based ultrasound done on 05/05/2025 shows multiple left breast abscesses, largest one being 3.6 cm Blood culture ordered Surgery consulted Wound care consulted IV vancomycin for MRSA coverage Pain management with acetaminophen, morphine as needed, breast elevation and warm compress Obesity Dyslipidemia History of impaired fasting glucose BMI 33.5 Deferred Zepbound during hospital admission, will continue with PCP on discharge Counseled on lifestyle and diet No statins indicated at this time DIET: NPO DVT PROPHYLAXIS: Lovenox CODE STATUS: Goals of care discussed with patient at bedside for more than 36 minutes. Full code DISPOSITION: Med/surge Patient's status and plan discussed with the patient. Case discussed with Dr. Walden. Plan discussed with: Patient (Nurse), Spouse, Other (Nurses) My Orders Orders - ISADORA ROBLERO RESIDENT Procedure Category Date Status Time Ammonia LAB 05/06/25 Logged 22:41 C-Reactive Protein LAB 05/06/25 In Process 22:41 Complete Blood Count LAB 05/07/25 Verified 04:00 Basic Metabolic Panel LAB 05/07/25 Verified 04:00 Drug Screen LAB 05/06/25 Logged 22:41 Hemoglobin A1c LAB 05/06/25 In Process 22:41 Lipase LAB 05/06/25 In Process 22:41 Lipid Panel LAB 05/06/25 In Process 22:41 Magnesium LAB 05/06/25 In Process 22:41 Phosphorus LAB 05/06/25 In Process 22:41 PTPTT LAB 05/06/25 In Process 22:41 Thyroid Stimulating LAB 05/06/25 In Process Hormone 22:41 Vitamin B12 LAB 05/06/25 In Process 22:41 Vitamin D, 25-Hydroxy LAB 05/06/25 In Process 22:41 Test, Urine LAB 05/06/25 Logged 22:43 Admit ADMIT 05/06/25 Verified 23:07 Allergies URIEL 05/06/25 Verified 23:07 Code Status CODE 05/06/25 Verified 23:07 0.9% Ns 1000 Ml PHA 05/06/25 Verified 23:15 Acetaminophen Tablet PHA 05/06/25 Verified (Tylenol Tablet) 23:15 Ondansetron Hcl PHA 05/06/25 Verified (Zofran) 23:15 Ascorbic Acid Tablet PHA 05/07/25 Verified (Vitamin C Tablet) 10:00 Multiple Vitamin PHA 05/07/25 Verified Tablet (Mvi Tab) 10:00 Comprehensive LAB 05/07/25 Verified Metabolic Panel 04:00 Npo (Nothing By DIET 05/07/25 Verified Mouth) Diet Breakfast Condition: Serious URIEL 05/06/25 Verified 23:07 Morphine Sulfate PHA 05/06/25 Verified Injection 23:15 Lovenox 40mg PHA 05/06/25 Verified 23:15 Stat Ekg For Chest URIEL 05/06/25 Verified Pain 23:07 Notify Md Of Changes URIEL 05/06/25 Verified From Base 23:07 Date of Service: May 06, 2025 Billing Provider: GUANACO WALDEN MD Common Visit Codes: [id number] INP/OBS CARE (HIGH) Secondary Visit Codes: [id number] CARE PLAN 30 MINUTES ISADORA ROBLERO RESIDENT May 06, 2025 23:11 LORRAINE ROBLES RESIDENT May 07, 2025 05:26
[2025-05-06 23:15] LABS: Magnesium 1.9 mg/dL (1.6-2.6)
[2025-05-06] MEDS ORDERED: ACETAMINOPHEN 325 MG TAB PO PRN (23:15)
[2025-05-06] MEDS ORDERED: ONDANSETRON HCL 4 MG/2 ML VIAL IV PRN (23:15)
[2025-05-06 23:17] LABS: Cholesterol 166.0 mg/dL (< 200)
[2025-05-06 23:18] LABS: INR 1.0 (0.9-1.15); Partial Thromboplastin Time 29.0 SEC (24.5-34.5); Prothrombin Time 10.6 sec (9.3-11.8)
[2025-05-06 23:20] LABS: HDL Cholesterol 33.0 mg/dL (40-59); Triglycerides 178.0 mg/dL (< 150)
[2025-05-06 23:46] LABS: Alanine Aminotransferase 21.0 U/L (7-40); Albumin 4.4 g/dL (3.2-4.8); Alkaline Phosphatase 62.0 U/L (46-116); Bilirubin, Direct 0.1 mg/dL (<0.3); Bilirubin, Total 0.4 mg/dL (0.2-1.0); Total Protein 7.7 g/dL (5.7-8.2)
[2025-05-06 23:51] LABS: Lipase 56.0 U/L (12-53)
[2025-05-07] VITALS (7 sets, daily range): BP systolic 102–121; BP diastolic 65–94; PULSE 61–103; RESP 14–18; TEMP 97.6–98.3; O2SAT 95–99
[2025-05-07] MEDS: HYDROcodone-ACET 5/325MG TAB PO ONE ×2 (02:48→20:11)
[2025-05-07] MEDS: SODIUM CHLORIDE 0.9% 1,000 ML IV SCH (02:49)
[2025-05-07] MEDS: PIPERACILLIN-TAZO 4.5GM 100 ML IV ONE (02:49)
[2025-05-07] MEDS: VANCOMYCIN 1GM/250ML KIT 250 ML IV ONE (04:54)
[2025-05-07] MEDS ORDERED: ERGO1CAP12 PO (05:48)
[2025-05-07] MEDS ORDERED: OMEG-86 PO (05:48)
[2025-05-07] MEDS ORDERED: TIRZ5INJ2 SC (05:48)
--- NOTE | 2025-05-07 06:50 | DVH ---
CHEST RADIOGRAPH Indication: Breast abscess Technique: Single frontal view of the chest was obtained COMPARISON: None FINDINGS: Lines and Tubes: None Lungs: Diminished lung volumes with concomitant crowding of the pulmonary vasculature. No evidence o f focal consolidation. Pleura: No effusion. No pneumothorax. Cardiomediastinal contours: Unremarkable Bones: Unremarkable IMPRESSION: 1. No evidence of acute cardiopulmonary process.
[2025-05-07 06:55] LABS: Alanine Aminotransferase 16 U/L (7-40); Albumin 4.3 g/dL (3.2-4.8); Alkaline Phosphatase 59 U/L (46-116); Anion Gap 11 (5-15); Calcium 9.0 mg/dL (8.7-10.4); Carbon Dioxide 28 mmol/L (20-31); Chloride 101 mmol/L (98-107); Glucose 80 mg/dL (74-106); Sodium 140 mmol/L (136-145); Total Protein 7.7 g/dL (5.7-8.2)
[2025-05-07 06:56] LABS: Bilirubin, Total 0.5 mg/dL (0.2-1.0)
[2025-05-07 06:57] LABS: Hematocrit 38.7 % (36.0-46.0); Hemoglobin 13.2 g/dL (12.2-16.2); Mean Corpuscular Hemoglobin 29.1 pg (28.0-32.0); Mean Corpuscular Volume 85.4 fL (80.0-100.0); Nucleated Red Blood Cells % 0.1 %
[2025-05-07 07:00] LABS: BUN/Creatinine Ratio 7.1 (10.0-20.0); Blood Urea Nitrogen < 5 mg/dL (9-23); Potassium 3.3 mmol/L (3.5-5.1)
[2025-05-07] MEDS ORDERED: VANCOMYCIN PER PHARMACY 0 MG IV SCH (07:15)
[2025-05-07] MEDS: PIPERACILLIN-TAZOB 3.375GM 100 ML IV ONE (07:15)
[2025-05-07] MEDS ORDERED: POTASSIUM CHL 20MEQ/100ML 100 ML IV SCH (07:30)
[2025-05-07] MEDS ORDERED: VANCOMYCIN 1GM/250ML KIT 250 ML IV SCH (08:30)
[2025-05-07 08:44] LABS: Urine Protein, UAD Negative (Negative)
[2025-05-07] MEDS: PIPERACILLIN-TAZOB 3.375GM 100 ML IV SCH ×2 (09:56→17:38)
[2025-05-07] MEDS: POTASSIUM CHL 20 Meq TABLET PO ONE (09:58)
[2025-05-07] MEDS: MULTIPLE VITAMIN TAB PO SCH (09:58)
[2025-05-07] MEDS: ASCORBIC ACID 500 MG TAB PO SCH (09:58)
[2025-05-07] MEDS: ENOXAPARIN SOD 40 MG/0.4 ML SYRINGE SC SCH (10:00)
[2025-05-07] MEDS ORDERED: POTASSIUM EFFERVESENT TAB 25 MEQ PO SCH (10:00)
[2025-05-07 10:15] LABS: Amphetamine Screen, Urine Neg (NEGATIVE); Barbiturate Scree,Urine Neg (NEGATIVE); Benzodiazephine Screen, Urine Neg (NEGATIVE); Opiate Scree,Urine Neg (NEGATIVE)
[2025-05-07 10:18] LABS: Cannabinoid Screen, Urine Neg (NEGATIVE); Cocaine Screen, Urine Neg (NEGATIVE); Phencyclidine Screen, Urine Neg (NEGATIVE)
--- NOTE | 2025-05-07 11:26 | DVHINCON2 ---
Date of service: May 07, 2025 Family History: FH: thyroid disease G8 FATHER Hypertension G8 MOTHER Allergies: Coded Allergies: NO KNOWN ALLERGIES (Unverified , 08/15/24) Home Meds Reported Medications Kzggz-1-Cddn Ethyl Esters (Cmijj-0-Iimm Ethyl Esters) 1 Gm Cap, 2 CAP PO DAILY 05/07/25 Ergocalciferol (Vitamin D) 50,000 Unit Cap, 1 CAP PO QWEEKLY 05/07/25 Tirzepatide (Zepbound) 5 Mg/0.5 Ml Inj, 5 MG SC QWEEKLY 05/07/25 Current Medications Current Medications Medications (Trade) Dose Ordered Sig/Brenda Route PRN Reason Start Time Stop Time Status Last Admin Sodium Chloride 1,000 ml @ 120 mls/hr Q8H20M IV 05/06/25 23:15 05/07/25 02:49 Acetaminophen (Tylenol Tablet) 325 mg Q4HP PRN PO MILD PAIN (1-3 PAIN SCALE) 05/06/25 23:15 Ondansetron HCl (Zofran) 4 mg Q4HP PRN IV NAUSEA / VOMITING 05/06/25 23:15 Ascorbic Acid (Vitamin C Tablet) 500 mg BID PO 05/07/25 10:00 05/07/25 09:58 Multivitamins (Mvi Tab) 1 tab DAILY PO 05/07/25 10:00 05/07/25 09:58 Morphine Sulfate 2 mg Q4HPRN PRN IV SEVERE PAIN (7-10 PAIN SCALE) 05/06/25 23:15 Enoxaparin Sodium (Lovenox) 40 mg DAILY SC 05/06/25 23:15 Vancomycin HCl 0 ml @ 0 mls/hr UD IV 05/07/25 07:15 05/07/25 08:41 DC Piperacillin Sod/ Tazobactam Sod 100 ml @ 25 mls/hr Q8HR IV 05/07/25 14:00 05/07/25 09:53 DC Potassium Chloride 100 ml @ 50 mls/hr Q2H IV 05/07/25 07:30 05/07/25 09:16 DC Vancomycin HCl 250 ml @ 250 mls/hr Q1H IV 05/07/25 08:30 05/07/25 08:41 DC Clindamycin Phosphate 50 ml @ 50 mls/hr Q8HR IV 05/07/25 14:00 05/07/25 09:54 DC Potassium Bicarbonate (Klor-Con/Ef) 50 meq DAILY PO 05/07/25 10:00 UNV Piperacillin Sod/ Tazobactam Sod 100 ml @ 25 mls/hr Q8HR IV 05/07/25 10:00 05/07/25 09:56 Clindamycin Phosphate 50 ml @ 50 mls/hr Q8H IV 05/07/25 15:00 Vital Signs Vital Signs Date Time Temp Pulse Resp B/P (MAP) Pulse Ox O2 Delivery O2 Flow Rate FiO2 05/07/25 09:00 97.8 67 16 109/65 (80) 99 97.8 05/07/25 02:22 Room Air* 0 21 Labs/Diagnostic Data Labs Test 05/07/25 06:00 05/07/25 05:51 05/06/25 23:24 05/06/25 18:57 Range/Units Urine Color Light-yellow Yellow Urine Clarity Clear Clear Urine pH 5.5 5.0-9.0 Urine Specific [place] 1.016 1.001-1.035 Urine Protein Negative Negative Urine Ketones Negative Negative Urine Blood Negative Negative /uL Urine Nitrite 2+ H Negative Urine Bilirubin Negative Negative Urine Urobilinogen Normal Negative mg/dL Urine Leukocyte Esterase Negative Negative /uL Urine RBC None seen 0 - 4 /hpf Urine Microscopic WBC 1 0-5 /HPF Urine Squamous Epithelial Cells Few <5 /hpf Urine Bacteria Few H None Seen /hpf Urine Glucose Normal Normal mg/dL Urine Test Negative Negative Urine Opiates Screen Neg NEGATIVE Urine Fentanyl Screen Neg NEGATIVE Urine Barbiturates Screen Neg NEGATIVE Urine Phencyclidine Screen Neg NEGATIVE Urine Amphetamines Screen Neg NEGATIVE Urine Benzodiazepines Screen Neg NEGATIVE Urine Cocaine Screen Neg NEGATIVE Urine Cannabinoids Screen Neg NEGATIVE White Blood Count 7.1 # 4.4-10.8 10^3/uL Red Blood Count 4.53 4.0-5.20 10^6/uL Hemoglobin 13.2 12.2-16.2 g/dL Hematocrit 38.7 36.0-46.0 % Mean Corpuscular Volume 85.4 80.0-100.0 fL Mean Corpuscular Hemoglobin 29.1 28.0-32.0 pg Mean Corpuscular Hemoglobin Concent 34.1 32.0-36.0 g/dL Red Cell Distribution Width 13.2 11.8-14.3 % Platelet Count 253 140-450 10^3/uL Mean Platelet Volume 8.5 6.9-10.8 fL Neutrophils (%) (Auto) 62.7 37.0-80.0 % Lymphocytes (%) (Auto) 31.9 10.0-50.0 % Monocytes (%) (Auto) 2.1 0.0-12.0 % Eosinophils (%) (Auto) 2.8 0.0-7.0 % Basophils (%) (Auto) 0.5 0.0-2.0 % Neutrophils # (Auto) 4.5 1.6-8.6 10 ^3/uL Lymphocytes # (Auto) 2.3 0.4-5.4 10 ^3/uL Monocytes # (Auto) 0.2 0-1.3 10 ^3/uL Eosinophils # (Auto) 0.2 0-0.8 10 ^3/uL Basophils # (Auto) 0 0-0.2 10 ^3/uL Nucleated Red Blood Cells 0.1 % Sodium Level 140 136-145 mmol/L Potassium Level 3.3 L 3.5-5.1 mmol/L Chloride Level 101 98-107 mmol/L Carbon Dioxide Level 28 20-31 mmol/L Anion Gap 11 5-15 Blood Urea Nitrogen < 5 L 9-23 mg/dL Creatinine 0.70 0.550-1.02 mg/dL Glomerular Filtration Rate Calc 113 >90 mL/min BUN/Creatinine Ratio 7.1 L 10.0-20.0 Serum Glucose 80 74-106 mg/dL Calcium Level 9.0 8.7-10.4 mg/dL Total Bilirubin 0.5 0.2-1.0 mg/dL Aspartate Amino Transferase (AST) 14 13-40 U/L Alanine Aminotransferase (ALT) 16 7-40 U/L Alkaline Phosphatase 59 46-116 U/L Total Protein 7.7 5.7-8.2 g/dL Albumin 4.3 3.2-4.8 g/dL Direct Bilirubin 0.1 <0.3 mg/dL Ammonia < 10 L 11-32 umol/L Lactic Acid Level 0.9 0.4-2.0 mmol/L Test 05/06/25 18:51 Range/Units Prothrombin Time 10.6 9.3-11.8 sec Prothrombin Time INR 1.00 0.9-1.15 Activated Partial Thromboplast Time 29.0 24.5-34.5 SEC Hemoglobin A1c 5.0 <5.7 % A1C Phosphorus Level 3.7 2.4-5.1 mg/dL Magnesium Level 1.9 1.6-2.6 mg/dL C-Reactive Protein High Sensitivity 0.44 <1.0 mg/dL Triglycerides Level 178 H < 150 mg/dL Cholesterol Level 166 < 200 mg/dL LDL Cholesterol 121 H < 100 mg/dL HDL Cholesterol 33 L 40-59 mg/dL Lipase 56 H 12-53 U/L Vitamin B12 Level 621 211-911 pg/mL Vitamin D 25-Hydroxy 50.8 30.0-100 ng/mL Thyroid Stimulating Hormone (TSH) 1.04 0.55-4.78 uIU/mL Assessment [id number] AFEBRILE VSS S/P LEFT BREAST MASS BX BENIGN NOW DEVELOPING CELLULITIS/POSSIBLE ABSCESS REPEAT US LEFT BREAST CONSIDER I/D ABOVE BASED ON ONGOING EVAL Plan discussed with: Patient WYATT TORRES MD May 07, 2025 11:26
--- NOTE | 2025-05-07 12:07 | DVHINCON2 ---
DATE OF CONSULTATION: 05/07/2025 HISTORY OF PRESENT ILLNESS: This patient is 39 years old coming in with a left breast mass that was biopsied, got infected and presented to the Emergency Room. She had an ultrasound done where they were picking up an abscess on the left breast and she got admitted for IV antibiotics. Previously given antibiotics were not helping her. Some nausea. No vomiting. No constipation or diarrhea. No hematemesis or melena. No bleeding per rectum. PAST MEDICAL HISTORY: No diabetes, hypertension. PAST SURGICAL HISTORY: No significant surgical history other than the biopsy of the left breast mass and left axillary lymph node biopsy as well. They were both benign. She has family history of cancer and she also is visiting [facility] for further evaluation. So, at this point she has this left breast redness and mass and possible abscess for which I was asked to see her. PHYSICAL EXAMINATION: VITAL SIGNS: Afebrile, stable signs. HEENT: With no evidence of pallor, cyanosis, or jaundice. NECK: Supple, nontender with no thyromegaly or lymphadenopathy. CHEST AND LUNGS: Clear. HEART: Within normal limits. ABDOMEN: Soft. NEUROLOGIC: Not assessed. ASSESSMENT: Left breast examination reveals a left 3 o'clock lateral cellulitis with the possibility of an abscess. PLAN: The plan will be to repeat ultrasound of the left breast in 3 o'clock location and then consider incision and drainage of the left breast abscess based upon ongoing evaluation. MD AGUSTO Escalante/RAJESH/JORDIN TID: [id number] RECEIPT: [id number] cc: Tomás Haji MD
--- NOTE | 2025-05-07 12:49 | DVH ---
US OF THE LEFT BREAST INDICATION: Pain; R/O ABSCESS TECHNIQUE: Targeted left breast ultrasound was performed. COMPARISON: Prior exam dated: 05/05/2025 FINDINGS: Again visualized are multiple hypoechoic areas in the soft tissues of the left breast measuring 5.5 c m, increased in size compared to prior exam. There is associated hyperemia and skin thickening favore d to mastitis with developing abscess versus phlegmonous change. Lymph nodes with a prominent cortex in the left axilla are favored to be reactive. IMPRESSION: Again visualized are multiple hypoechoic areas in the soft tissues of the left breast measuring 5.5 c m, increased in size compared to prior exam. There is associated hyperemia and skin thickening favore d to mastitis with developing abscess versus phlegmonous change. Lymph nodes with a prominent cortex in the left axilla are favored to be reactive. Recommend clinical management. After completion of treatment, recommend diagnostic bilateral mammogram and left breast ultrasound. ACR Bi Rads Category:Category 3
[2025-05-07] MEDS ORDERED: PIPERACILLIN-TAZOB 3.375GM 100 ML IV SCH (14:00)
[2025-05-07] MEDS ORDERED: CLINDAMYCIN 600MG IV 50 ML IV SCH (14:00)
[2025-05-07] MEDS: CLINDAMYCIN 600MG IV 50 ML IV SCH (14:21)
--- NOTE | 2025-05-07 17:59 | DVHPNRES ---
Progress Note Date Seen: May 07, 2025 Resident Creating Document: WALE RAMIREZ RESIDENT Medical Necessity Reason Pt with a Central, PICC or Fol: No Subjective Review of Systems This is a 39 year old female, with significant past medical history of benign breast mass, presented to the ER with chief complain of left breast pain and swelling. She first started having breast pain in December this year, associated with a breast mass and purulent discharge from her nipple. An ultrasound in bilateral mammogram was done revealing a mass, US guided FNA showed benign mass in February 2025. During the workup a tracker was left in place. The patient developed FNA site infection for which she received topical mupirocin. Since last one week, she started complaining of worsening breast pain, which she described as burning, sharp, 7/10, intermittent, radiating from upper outer quadrant to the nipple area. Her pain worsened 2 days back, associated with progressively increasing size of her breast mass, for which she presented to the ER yesterday. She reports she underwent ultrasound revealing breast abscess and was advised IV antibiotics and surgical consultation, patient requested conservative route with oral antibiotics and was sent home with oral cephalexin for 7 days. Due to worsening pain and swelling she presented today to the ER. She also reported increasing size of mass with associated erythema. No purulent discharge or bloody discharge from nipple reported. She denied , or breast trauma. PMHx: Benign left breast mass PSHx: No significant surgical history Family history: Significant for breast cancer in maternal grandmother, leukemia in a paternal grand mother, uterine and ovarian cancer- father's sister Social history: Occasional alcohol use, marijuana (last used few years back). Lives in home with family. LMP 04/11/2025. Full code. next of kin. Home medication: Zepbound, vitamin-D, [place] 3 fatty acid, mupirocin Allergic history: No allergies reported The patient was seen and examined at bedside today. Overnight events were reviewed. The patient complains of the severe left breast pain with swelling, redness. She denies any chest pain, shortness of breath, fever, surgery abdominal pain or any other complaints today. Objective vital signs Vital Sign Date Time Temp Pulse Resp B/P (MAP) Pulse Ox O2 Delivery O2 Flow Rate FiO2 05/07/25 16:48 97.8 81 17 105/79 (88) 97 97.8 05/07/25 08:00 Room Air* 0 21 Total Intake and Output 05/06/25 05/06/25 05/07/25 15:00 23:00 07:00 Intake Total 0 ml Balance 0 ml medications Current Medications Medications Dose Ordered Sig/Brenda Route Start Time Stop Time Status Last Admin Dose Admin Sodium Chloride 1,000 ml @ 120 mls/hr Q8H20M IV 05/06/25 23:15 05/07/25 02:49 120 MLS/HR Ondansetron HCl 4 mg Q4HP PRN IV 05/06/25 23:15 Multivitamins 1 tab DAILY PO 05/07/25 10:00 05/07/25 09:58 1 TAB Morphine Sulfate 2 mg Q4HPRN PRN IV 05/06/25 23:15 Enoxaparin Sodium 40 mg DAILY SC 05/06/25 23:15 Potassium Bicarbonate 50 meq DAILY PO 05/07/25 10:00 UNV Clindamycin Phosphate 50 ml @ 50 mls/hr Q8H IV 05/07/25 15:00 05/07/25 14:21 50 MLS/HR Piperacillin Sod/ Tazobactam Sod 100 ml @ 25 mls/hr Q8H IV 05/07/25 18:00 05/07/25 17:38 25 MLS/HR Acetaminophen 650 mg Q6HP PRN PO 05/07/25 18:00 UNV Examination Exam General: Patient alert and oriented in person, place and time. Patient following commands. HEENT: Normocephalic, atraumatic, dry mucous membranes Respiratory/pulmonary: Clear lungs bilaterally, vesicular murmurs present in almost all lung manning, no associated crackles or wheezes. Cardiovascular: Normal heart sounds S1 and S2 with no associated murmurs Abdomen: Abdomen nondistended, there is no pain to palpation in any of the abdominal quadrants, no palpable masses. Extremities: There is no peripheral edema present at the lower extremities. Peripheral Pulses: 3+ Radial (R). 3+ Radial (L). 3+ Dorsalis pedis (R). 3+ Dorsalis pedis(L) Neurological: Intact cranial nerves with no focal neurologic deficits Breast exam: Left breast-upper outer quadrant erythema, elevated temperature, irregular firm mass, tender to palpation. No discharge from nipples seen. No palpable axillary lymph nodes. laboratory and microbiology Laboratory Tests 05/07/25 05:51 Test 05/07/25 05:51 Range/Units Serum Glucose 80 74-106 mg/dL Labs and/or images reviewed: Labs reviewed by me, Image(s) reviewed by me Problem List/Assessment/Plan Problem List/Assessment/Plan Left Breast multiple abscesses Left mastitis Based ultrasound done on 05/05/2025 shows multiple left breast abscesses, largest one being 3.6 cm US today shows multiple hypoechoic areas in the soft tissues of the left breast measuring 5.5 cm, increased in size compared to prior exam Blood culture ordered Surgery consulted Wound care consulted IV vancomycin for MRSA coverage discontinued due to itching and red rash. Patient was started on clindamycin and Zosyn. Surgery consult was appreciated and the patient is scheduled for incision and drainage tomorrow (05/08/2025). NPO from midnight Pain management with acetaminophen, morphine as needed and warm compress Obesity Dyslipidemia History of impaired fasting glucose BMI 33.5 Deferred Zepbound during hospital admission, will continue with PCP on discharge Counseled on lifestyle and diet No statins indicated at this time DIET: Regular diet, NPO from midnight DVT PROPHYLAXIS: Lovenox CODE STATUS: Goals of care discussed with patient at bedside for more than 36 minutes. Full code DISPOSITION: Med/surge Plan discussed with Dr. Haji Plan discussed with: Other (RN) Date of Service: May 07, 2025 Billing Provider: EMILE HAJI MD Common Visit Codes: [id number] INP/OBS CARE(HIGH) WALE RAMIREZ RESIDENT May 07, 2025 17:59 JULIA ARAYA RESIDENT May 07, 2025 20:36 EMILE HAJI MD May 11, 2025 00:00
[2025-05-08] VITALS (8 sets, daily range): BP systolic 98–114; BP diastolic 53–76; PULSE 58–72; RESP 14–18; TEMP 97–98.5; O2SAT 95–100
[2025-05-08 05:30] LABS: Hematocrit 36.3 % (36.0-46.0); Hemoglobin 12.6 g/dL (12.2-16.2); Mean Corpuscular Hemoglobin 29.5 pg (28.0-32.0); Mean Corpuscular Volume 85.4 fL (80.0-100.0); Nucleated Red Blood Cells % 0.1 %
[2025-05-08 05:41] LABS: Chloride 104 mmol/L (98-107); Potassium 3.8 mmol/L (3.5-5.1); Sodium 140 mmol/L (136-145)
[2025-05-08 05:42] LABS: Anion Gap 11 (5-15); Calcium 9.0 mg/dL (8.7-10.4); Carbon Dioxide 25 mmol/L (20-31)
[2025-05-08 05:47] LABS: BUN/Creatinine Ratio 6.9 (10.0-20.0); Glucose 93 mg/dL (74-106)
[2025-05-08 05:48] LABS: Blood Urea Nitrogen 6 mg/dL (9-23)
[2025-05-08] MEDS ORDERED: MIDAZOLAM HCL 2MG/2ML 2ml VIAL (1mg/ml) ONE (10:24)
[2025-05-08] MEDS ORDERED: fentaNYL CITRATE 100 MCG/2 ML VL ONE (10:24)
[2025-05-08] MEDS ORDERED: PROPOFOL 10 MG/ML 20 ML IV ONE (10:33)
[2025-05-08] MEDS: BUPIVACAINE 0.5% MPF INJ 30ML SDV IJ ONE (10:58)
--- NOTE | 2025-05-08 11:04 | DVHOP2 ---
Operative Report [id number] LEFT BREAST ABSCESS I/D ABOVE EBL 25 CC PUS C/S SENT ONE DRAIN NO COMPLICATIONS STABLE TRANSFER TO RECOVERY ROOM WYATT TORRES MD May 08, 2025 11:04
--- NOTE | 2025-05-08 11:12 | DVHOP ---
DATE OF SURGERY: 05/08/2025 PREOPERATIVE DIAGNOSIS: Left breast abscess following left breast lesion biopsy done by Radiology. POSTOPERATIVE DIAGNOSIS: Left breast abscess following left breast lesion biopsy done by Radiology. PROCEDURE: Incision and drainage of this abscess. SURGEON: Julio Teresa MD CUSTOMER CONSULTANT: None. ANESTHESIA: IV sedation with local. DRAINS: One drain was used. ESTIMATED BLOOD LOSS: Close to 25 mL. COMPLICATIONS: No complications. DESCRIPTION OF PROCEDURE: The patient was prepped and draped in the usual sterile fashion in the supine position. The left breast area was exposed and incision was applied in the circumareolar margin close to the 5 o'clock, 6 o'clock vicinity and the abscess was located in the 3 o'clock location and instrument was introduced. The pus was drained out. Cultures were sent. The area was irrigated thoroughly and hemostasis was secured and a 1/4-inch size Hali drain was placed to drain the abscess cavity, secured with a nylon suture and a dressing was applied for the drain site. The patient tolerated the procedure well and was taken back to the recovery room in a stable condition. MD AGUSTO Escalante/MAGGIE TID: [id number] RECEIPT: [id number] cc: Aiyana Orellana
[2025-05-08] MEDS: HYDROmorphone HCL 2 MG/ML VL/or syr IV PRN (11:28)
[2025-05-08] MEDS ORDERED: KETOROLAC TROMETH 30 MG/ML 1ML VIAL IV ONE (11:30)
[2025-05-08] MEDS ORDERED: ONDANSETRON HCL 4 MG/2 ML VIAL IV PRN (11:30)
[2025-05-08] MEDS ORDERED: hydrALAZINE HCL 20 MG/ML VL IV PRN (11:30)
[2025-05-08] MEDS ORDERED: MORPHINE SULFATE 4 MG/ML SYR/VIAL IV PRN (11:30)
[2025-05-08] MEDS ORDERED: MIDAZOLAM HCL 2MG/2ML 2ml VIAL (1mg/ml) IV PRN (11:30)
[2025-05-08] MEDS: HYDROmorphone HCL 2 MG/ML VL/or syr ONE (11:31)
[2025-05-08] MEDS: MORPHINE SULFATE INJ 2 MG/ml SYRG IV PRN (15:15)
--- NOTE | 2025-05-08 19:29 | DVHPNRES ---
Progress Note Date Seen: May 08, 2025 Resident Creating Document: WALE RAMIREZ RESIDENT Medical Necessity Reason Pt with a Central, PICC or Fol: No Subjective Review of Systems This is a 39 year old female, with significant past medical history of benign breast mass, presented to the ER with chief complain of left breast pain and swelling. She first started having breast pain in December this year, associated with a breast mass and purulent discharge from her nipple. An ultrasound in bilateral mammogram was done revealing a mass, US guided FNA showed benign mass in February 2025. During the workup a tracker was left in place. The patient developed FNA site infection for which she received topical mupirocin. Since last one week, she started complaining of worsening breast pain, which she described as burning, sharp, 7/10, intermittent, radiating from upper outer quadrant to the nipple area. Her pain worsened 2 days back, associated with progressively increasing size of her breast mass, for which she presented to the ER yesterday. She reports she underwent ultrasound revealing breast abscess and was advised IV antibiotics and surgical consultation, patient requested conservative route with oral antibiotics and was sent home with oral cephalexin for 7 days. Due to worsening pain and swelling she presented today to the ER. She also reported increasing size of mass with associated erythema. No purulent discharge or bloody discharge from nipple reported. She denied , or breast trauma. PMHx: Benign left breast mass PSHx: No significant surgical history Family history: Significant for breast cancer in maternal grandmother, leukemia in a paternal grand mother, uterine and ovarian cancer- father's sister Social history: Occasional alcohol use, marijuana (last used few years back). Lives in home with family. LMP 04/11/2025. Full code. next of kin. Home medication: Zepbound, vitamin-D, [place] 3 fatty acid, mupirocin Allergic history: No allergies reported The patient was seen and examined at bedside today. Overnight events were reviewed. The patient was NPO in the morning, the patient was seen after the surgery, was tolerating food. She reports mild pain at the surgical site She denies any chest pain, shortness of breath, fever, surgery abdominal pain or any other complaints today. Objective vital signs Vital Sign Date Time Temp Pulse Resp B/P (MAP) Pulse Ox O2 Delivery O2 Flow Rate FiO2 05/08/25 15:45 70 16 114/67 05/08/25 12:45 97.0 96 97.0 05/08/25 11:56 Room Air 0 96 Total Intake and Output 05/07/25 05/07/25 05/08/25 15:00 23:00 07:00 Intake Total 100 ml 800 ml 750 ml Balance 100 ml 800 ml 750 ml medications Current Medications Medications Dose Ordered Sig/Brenda Route Start Time Stop Time Status Last Admin Dose Admin Sodium Chloride 1,000 ml @ 120 mls/hr Q8H20M IV 05/06/25 23:15 05/08/25 16:35 120 MLS/HR Ondansetron HCl 4 mg Q4HP PRN IV 05/06/25 23:15 Multivitamins 1 tab DAILY PO 05/07/25 10:00 05/08/25 09:38 1 TAB Morphine Sulfate 2 mg Q4HPRN PRN IV 05/06/25 23:15 05/08/25 15:15 2 MG Enoxaparin Sodium 40 mg DAILY SC 05/06/25 23:15 Potassium Bicarbonate 50 meq DAILY PO 05/07/25 10:00 UNV Clindamycin Phosphate 50 ml @ 50 mls/hr Q8H IV 05/07/25 15:00 05/08/25 14:01 50 MLS/HR Piperacillin Sod/ Tazobactam Sod 100 ml @ 25 mls/hr Q8H IV 05/07/25 18:00 05/08/25 17:30 25 MLS/HR Acetaminophen 650 mg Q6HP PRN PO 05/07/25 18:00 Examination General: Patient alert and oriented in person, place and time. Patient following commands. HEENT: Normocephalic, atraumatic, dry mucous membranes Respiratory/pulmonary: Clear lungs bilaterally, vesicular murmurs present in almost all lung manning, no associated crackles or wheezes. Cardiovascular: Normal heart sounds S1 and S2 with no associated murmurs Abdomen: Abdomen nondistended, there is no pain to palpation in any of the abdominal quadrants, no palpable masses. Extremities: There is no peripheral edema present at the lower extremities. Skin: Bandage partially soaked with blood with a drain placed. Peripheral Pulses: 3+ Radial (R). 3+ Radial (L). 3+ Dorsalis pedis (R). 3+ Dorsalis pedis(L) Neurological: Intact cranial nerves with no focal neurologic deficits laboratory and microbiology Laboratory Tests 05/08/25 05:18 Test 05/08/25 05:18 Range/Units Serum Glucose 93 74-106 mg/dL Microbiology Date/Time Source Procedure Growth Status 05/08/25 10:54 Breast Left Gram Stain - Final Resulted 05/08/25 10:54 Breast Left Anaerobic Culture Pending Resulted 05/08/25 10:54 Breast Left Aerobic Culture Pending Resulted 05/07/25 06:00 Voided Urine Urine Culture - Preliminary Resulted 05/06/25 18:50 Blood Blood Culture - Preliminary NO GROWTH AFTER 48 HOURS OF INCUBATION. Resulted Labs and/or images reviewed: Labs reviewed by me, Image(s) reviewed by me Problem List/Assessment/Plan Problem List/Assessment/Plan Left Breast abscess Left breast Breast cellulitis Benign breast mass Based ultrasound done on 05/05/2025 shows multiple left breast abscesses, largest one being 3.6 cm Blood culture call no growth after 24 hours IV vancomycin for MRSA coverage discontinued due to itching and red rash. Patient was started on clindamycin and Zosyn. Incision and drainage of the left breast abscess with a drain placed performed today on 05/08/2025. Plan to remove the drain tomorrow. Pain management with morphine and Dilaudid. Obesity Dyslipidemia History of impaired fasting glucose BMI 33.5 Deferred Zepbound during hospital admission, will continue with PCP on discharge Counseled on lifestyle and diet No statins indicated at this time DIET: Regular diet DVT PROPHYLAXIS: Lovenox CODE STATUS: Goals of care discussed with patient at bedside for more than 36 minutes. Full code Case discussed with Dr. Parrish Plan discussed with: Patient, Other (RN) Date of Service: May 08, 2025 Billing Provider: EMILE PARRISH MD Common Visit Codes: 66599-[id number] INP/OBS CARE(HIGH) WALE RAMIREZ RESIDENT May 08, 2025 19:29 EMILE PARRISH MD May 11, 2025 00:00
[2025-05-09 01:00] VITALS: BP 114/65; PULSE 69; RESP 15; TEMP 98; O2SAT 96
[2025-05-09 05:00] VITALS: BP 105/70; PULSE 72; RESP 16; TEMP 98; O2SAT 97
[2025-05-09 05:35] LABS: Hematocrit 37.3 % (36.0-46.0); Hemoglobin 12.5 g/dL (12.2-16.2); Mean Corpuscular Hemoglobin 28.6 pg (28.0-32.0); Mean Corpuscular Volume 85.0 fL (80.0-100.0); Nucleated Red Blood Cells % 0.0 %
[2025-05-09 05:46] LABS: Calcium 9.4 mg/dL (8.7-10.4); Chloride 105 mmol/L (98-107); Potassium 4.0 mmol/L (3.5-5.1); Sodium 140 mmol/L (136-145)
[2025-05-09 05:47] LABS: Anion Gap 11 (5-15); Carbon Dioxide 24 mmol/L (20-31)
[2025-05-09 05:52] LABS: BUN/Creatinine Ratio 8.2 (10.0-20.0)
[2025-05-09 05:54] LABS: Blood Urea Nitrogen 6 mg/dL (9-23); Glucose 110 mg/dL (74-106)
[2025-05-09 08:00] VITALS: O2SAT 95
[2025-05-09 08:45] VITALS: BP 106/65; PULSE 82; RESP 18; TEMP 98.2; O2SAT 98
[2025-05-09] MEDS: ACETAMINOPHEN 325 MG TAB PO PRN (08:48)
[2025-05-09 12:57] VITALS: BP 119/79; PULSE 73; RESP 16; TEMP 98.7; O2SAT 99
[2025-05-09] MEDS ORDERED: SODIUM CHLORIDE 0.9% 1,000 ML IV SCH (13:45)
[2025-05-09] MEDS ORDERED: AUG875T PO (16:06)
[2025-05-09] MEDS ORDERED: DOXY1CAP57 PO (16:06)
[2025-05-09 16:53] VITALS: BP 115/83; PULSE 79; RESP 16; TEMP 98.8; O2SAT 98
--- NOTE | 2025-05-09 17:57 | DVHDSRES ---
Discharge Summary Date of Admission Resident Creating Document: WALE RAMIREZ May 06, 2025 at 23:07 Date of Discharge: May 09, 2025 Admitting Diagnosis Left breast abscess Labs/Diagnostic Data: Laboratory Results Test 05/09/25 05:15 05/07/25 06:00 05/07/25 05:51 05/06/25 23:24 White Blood Count 15.2 10^3/uL (4.4-10.8) Red Blood Count 4.39 10^6/uL (4.0-5.20) Hemoglobin 12.5 g/dL (12.2-16.2) Hematocrit 37.3 % (36.0-46.0) Mean Corpuscular Volume 85.0 fL (80.0-100.0) Mean Corpuscular Hemoglobin 28.6 pg (28.0-32.0) Mean Corpuscular Hemoglobin Concent 33.6 g/dL (32.0-36.0) Red Cell Distribution Width 13.4 % (11.8-14.3) Platelet Count 273 10^3/uL (140-450) Mean Platelet Volume 8.5 fL (6.9-10.8) Neutrophils (%) (Auto) 82.9 % (37.0-80.0) Lymphocytes (%) (Auto) 12.0 % (10.0-50.0) Monocytes (%) (Auto) 4.7 % (0.0-12.0) Eosinophils (%) (Auto) 0.0 % (0.0-7.0) Basophils (%) (Auto) 0.4 % (0.0-2.0) Neutrophils # (Auto) 12.6 10 ^3/uL (1.6-8.6) Lymphocytes # (Auto) 1.8 10 ^3/uL (0.4-5.4) Monocytes # (Auto) 0.7 10 ^3/uL (0-1.3) Eosinophils # (Auto) 0 10 ^3/uL (0-0.8) Basophils # (Auto) 0.1 10 ^3/uL (0-0.2) Nucleated Red Blood Cells 0.0 % Sodium Level 140 mmol/L (136-145) Potassium Level 4.0 mmol/L (3.5-5.1) Chloride Level 105 mmol/L (98-107) Carbon Dioxide Level 24 mmol/L (20-31) Anion Gap 11 (5-15) Blood Urea Nitrogen 6 mg/dL (9-23) Creatinine 0.73 mg/dL (0.550-1.02) Glomerular Filtration Rate Calc 108 mL/min (>90) BUN/Creatinine Ratio 8.2 (10.0-20.0) Serum Glucose 110 mg/dL (74-106) Calcium Level 9.4 mg/dL (8.7-10.4) Urine Color Light-yellow (Yellow) Urine Clarity Clear (Clear) Urine pH 5.5 (5.0-9.0) Urine Specific [place] 1.016 (1.001-1.035) Urine Protein Negative (Negative) Urine Ketones Negative (Negative) Urine Blood Negative /uL (Negative) Urine Nitrite 2+ (Negative) Urine Bilirubin Negative (Negative) Urine Urobilinogen Normal mg/dL (Negative) Urine Leukocyte Esterase Negative /uL (Negative) Urine RBC None seen /hpf (0 - 4) Urine Microscopic WBC 1 /HPF (0-5) Urine Squamous Epithelial Cells Few /hpf (<5) Urine Bacteria Few /hpf (None Seen) Urine Glucose Normal mg/dL (Normal) Urine Test Negative (Negative) Urine Opiates Screen Neg (NEGATIVE) Urine Fentanyl Screen Neg (NEGATIVE) Urine Barbiturates Screen Neg (NEGATIVE) Urine Phencyclidine Screen Neg (NEGATIVE) Urine Amphetamines Screen Neg (NEGATIVE) Urine Benzodiazepines Screen Neg (NEGATIVE) Urine Cocaine Screen Neg (NEGATIVE) Urine Cannabinoids Screen Neg (NEGATIVE) Total Bilirubin 0.5 mg/dL (0.2-1.0) Aspartate Amino Transferase (AST) 14 U/L (13-40) Alanine Aminotransferase (ALT) 16 U/L (7-40) Alkaline Phosphatase 59 U/L (46-116) Total Protein 7.7 g/dL (5.7-8.2) Albumin 4.3 g/dL (3.2-4.8) Vitamin B12 Level 570 pg/mL (211-911) Vitamin D 25-Hydroxy 56.6 ng/mL (30.0-100) Thyroid Stimulating Hormone (TSH) 2.70 uIU/mL (0.55-4.78) Direct Bilirubin 0.1 mg/dL (<0.3) Ammonia < 10 umol/L (11-32) Test 05/06/25 18:57 05/06/25 18:51 Lactic Acid Level 0.9 mmol/L (0.4-2.0) Prothrombin Time 10.6 sec (9.3-11.8) Prothrombin Time INR 1.00 (0.9-1.15) Activated Partial Thromboplast Time 29.0 SEC (24.5-34.5) Hemoglobin A1c 5.0 % A1C (<5.7) Phosphorus Level 3.7 mg/dL (2.4-5.1) Magnesium Level 1.9 mg/dL (1.6-2.6) C-Reactive Protein High Sensitivity 0.44 mg/dL (<1.0) Triglycerides Level 178 mg/dL (< 150) Cholesterol Level 166 mg/dL (< 200) LDL Cholesterol 121 mg/dL (< 100) HDL Cholesterol 33 mg/dL (40-59) Lipase 56 U/L (12-53) Other Laboratory Tests 05/09/25 05:15 Brief Hx & Hospital Course: Ms Dru Barajas 39 year old female, with significant past medical history of benign breast mass, presented to the ER with chief complain of left breast pain and swelling. She first started having breast pain in December this year, associated with a breast mass and purulent discharge from her nipple. An ultrasound in bilateral mammogram was done revealing a mass, US guided FNA showed benign mass in February 2025. During the workup a tracker was left in place. The patient developed FNA site infection for which she received topical mupirocin. Since last one week, she started complaining of worsening breast pain, which she described as burning, sharp, 7/10, intermittent, radiating from upper outer quadrant to the nipple area. Her pain worsened 2 days back, associated with progressively increasing size of her breast mass, for which she presented to the ER yesterday. She reports she underwent ultrasound revealing breast abscess and was advised IV antibiotics and surgical consultation, patient requested conservative route with oral antibiotics and was sent home with oral cephalexin for 7 days. Due to worsening pain and swelling she presented today to the ER. She also reported increasing size of mass with associated erythema. No purulent discharge or bloody discharge from nipple reported. She denied , or breast trauma. PMHx: Benign left breast mass PSHx: No significant surgical history Family history: Significant for breast cancer in maternal grandmother, leukemia in a paternal grand mother, uterine and ovarian cancer- father's sister Social history: Occasional alcohol use, marijuana (last used few years back). Lives in home with family. LMP 04/11/2025. Full code. next of kin. Home medication: Zepbound, vitamin-D, [place] 3 fatty acid, mupirocin Allergic history: No allergies reported Left breast ultrasound showed: multiple hypoechoic areas in the soft tissues of the left breast measuring 5.5 cm, increased in size compared to prior exam. There is associated hyperemia and skin thickening favored to mastitis with developing abscess versus phlegmonous change. Lymph nodes with a prominent cortex in the left axilla are favored to be reactive. The patient was treated with IV clindamycin and Zosyn. Vancomycin was discontinued due to allergic reaction. And management was done with Dilaudid and morphine throughout her stay. Surgical consultation was done, patient underwent an incision and drainage with a drain placed on 05/08/2025. Her Zepbound was held due to hospital admission. She was counseled about healthy lifestyle due to obesity and dyslipidemia The following day, her drain was removed by the surgeon and the patient was deemed stable for discharge, as a surgery standpoint. She was advised to not take shower for 3 days. Patient is advised to follow up with PCP and surgery in 1 week. Examination: General: Patient alert and oriented in person, place and time. Patient following commands. HEENT: Normocephalic, atraumatic, dry mucous membranes Respiratory/pulmonary: Clear lungs bilaterally, vesicular murmurs present in almost all lung manning, no associated crackles or wheezes. Cardiovascular: Normal heart sounds S1 and S2 with no associated murmurs Abdomen: Abdomen nondistended, there is no pain to palpation in any of the abdominal quadrants, no palpable masses. Extremities: There is no peripheral edema present at the lower extremities. Skin: Bandage partially soaked with blood with a drain placed. Peripheral Pulses: 3+ Radial (R). 3+ Radial (L). 3+ Dorsalis pedis (R). 3+ Dorsalis pedis(L) Neurological: Intact cranial nerves with no focal neurologic deficits laboratory and microbiology Operations or Procedures PATIENT: DRU BARAJAS ACCT: [id number] UNIT: [id number] : 1985 LOC: EAST ROOM / BED: 0244ADS / 4 AGE / SEX: 39 / F ADM STATUS: ADM IN SERVICE 0520 ORDERING PHYSICIAN: LORRAINE ROBLES PROCEDURE(s): CXR1 - CHEST XRAY 1 VIEW REASON: Breast abscess ORDER NUMBER(s): [id number], ACCESSION NUMBER(s): [id number] CHEST RADIOGRAPH Indication: Breast abscess Technique: Single frontal view of the chest was obtained COMPARISON: None FINDINGS: Lines and Tubes: None Lungs: Diminished lung volumes with concomitant crowding of the pulmonary vasculature. No evidence of focal consolidation. Pleura: No effusion. No pneumothorax. Cardiomediastinal contours: Unremarkable Bones: Unremarkable IMPRESSION: 1. No evidence of acute cardiopulmonary process. PATIENT: DRU BARAJAS ACCT: [id number] UNIT: [id number] : 1985 LOC: [facility] ROOM / BED: 0244ADS / AGE / SEX: 39 / F ADM STATUS: ADM IN SERVICE 1124 ORDERING PHYSICIAN: WYATT TORRES MD PROCEDURE(s): LBRST - L BREAST ULTRASOUND REASON: R/O ABSCESS ORDER NUMBER(s): [id number], ACCESSION NUMBER(s): [id number] US OF THE LEFT BREAST INDICATION: Pain; R/O ABSCESS TECHNIQUE: Targeted left breast ultrasound was performed. COMPARISON: Prior exam dated: 05/05/2025 FINDINGS: Again visualized are multiple hypoechoic areas in the soft tissues of the left breast measuring 5.5 cm, increased in size compared to prior exam. There is associated hyperemia and skin thickening favored to mastitis with developing abscess versus phlegmonous change. Lymph nodes with a prominent cortex in the left axilla are favored to be reactive. IMPRESSION: Again visualized are multiple hypoechoic areas in the soft tissues of the left breast measuring 5.5 cm, increased in size compared to prior exam. There is associated hyperemia and skin thickening favored to mastitis with developing abscess versus phlegmonous change. Lymph nodes with a prominent cortex in the left axilla are favored to be reactive. Recommend clinical management. After completion of treatment, recommend diagnostic bilateral mammogram and left breast ultrasound. ACR Bi Rads Category:Category 3 ATED BY: RICCI SARAH MD DICTATED DATE/TIME: 05/07/25 1246 Condition at Discharge: Stable Final Diagnosis/Problems List Left breast abscess s/p surgical drainage Mixed hyperlipidemia Obesity Discharge Disposition: Home Discharge Instruct/Medications Diet: Regular Activity: No Restrictions, As Tolerated Follow Up/Referral: PCP TD Medications: Augmentin and doxycycline x 7 days Scheduled Amoxicillin & Pot Clavulanate (Augmentin Tablet), 875 MG PO BID Doxycycline Monohydrate (Doxycycline Monohydrate), 1 CAP PO BID Ergocalciferol (Vitamin D), 1 CAP PO QWEEKLY, (Reported) Jheje-9-Bqxb Ethyl Esters (Kdlyr-7-Mswx Ethyl Esters), 2 CAP PO DAILY, (Reported) Tirzepatide (Zepbound), 5 MG SC QWEEKLY, (Reported) Scheduled PRN Polyethylene Glycol 3350 (Miralax), 17 GM PO DAILYP PRN Discharge Statement: "Patient was advised to return to the ER or call 911 if any headaches, dizziness, shortness of breath, chest pain, abdominal pain, bleeding, fevers, or worsening of medical condition. Patient was counseled about treatment plan, medications, possible side effects, patientverbalized understanding. All questions were answered to the best of my ability. This discharge took greater then 30 minutes in planning, reviewing documentation, counseling the patient, and discussing with other team members." ASSESSMENT ASSESSMENT Assessment Left breast abscess s/p surgical drainage Mixed hyperlipidemia Obesity Date of Service: May 09, 2025 Billing Provider: EMILE PARRISH MD Common Visit Codes: 08806-DKO/OBS DISCH DAY >30min WALE RAMIREZ May 09, 2025 17:57 EMILE PARRISH MD May 11, 2025 00:01
--- NOTE | 2025-05-09 18:19 | DVHPN2 ---
Progress Note Date Seen: May 09, 2025 Medical Necessity Reason Pt with a Central, PICC or Fol: No Objective vital signs Vital Sign Date Time Temp Pulse Resp B/P (MAP) Pulse Ox O2 Delivery O2 Flow Rate FiO2 05/09/25 16:53 98.8 79 16 115/83 (94) 98 98.8 05/09/25 08:00 Room Air* 0 21 Total Intake and Output 05/08/25 05/08/25 05/09/25 15:00 23:00 07:00 Intake Total 250 ml 1850 ml 550 ml Balance 250 ml 1850 ml 550 ml medications Current Medications Medications Dose Ordered Sig/Brenda Route Start Time Stop Time Status Last Admin Dose Admin Ondansetron HCl 4 mg Q4HP PRN IV 05/06/25 23:15 Multivitamins 1 tab DAILY PO 05/07/25 10:00 05/09/25 10:46 1 TAB Morphine Sulfate 2 mg Q4HPRN PRN IV 05/06/25 23:15 05/08/25 15:15 2 MG Enoxaparin Sodium 40 mg DAILY SC 05/06/25 23:15 05/09/25 10:47 40 MG Potassium Bicarbonate 50 meq DAILY PO 05/07/25 10:00 UNV Clindamycin Phosphate 50 ml @ 50 mls/hr Q8H IV 05/07/25 15:00 05/09/25 18:02 50 MLS/HR Piperacillin Sod/ Tazobactam Sod 100 ml @ 25 mls/hr Q8H IV 05/07/25 18:00 05/09/25 10:47 25 MLS/HR Acetaminophen 650 mg Q6HP PRN PO 05/07/25 18:00 05/09/25 08:48 650 MG Sodium Chloride 1,000 ml @ 100 mls/hr Q10H IV 05/09/25 13:45 laboratory and microbiology Laboratory Tests 05/09/25 05:15 Test 05/09/25 05:15 Range/Units Serum Glucose 110 H 74-106 mg/dL Microbiology Date/Time Source Procedure Growth Status 05/08/25 10:54 Breast Left Gram Stain - Final Resulted 05/08/25 10:54 Breast Left Anaerobic Culture - Preliminary Resulted 05/08/25 10:54 Breast Left Aerobic Culture - Preliminary Resulted 05/07/25 06:00 Voided Urine Urine Culture - Final Complete 05/06/25 18:50 Blood Blood Culture - Preliminary NO GROWTH AFTER 48 HOURS OF INCUBATION. Resulted Problem List/Assessment/Plan Problem List/Assessment/Plan AFEBRILE VSS LEFT BREAST CELLULITIS LESS WOUND HEALING NO COMPLICATIONS DC DRAIN CLEARED FOR DISCHARGE INSTRUCTIONS RE DIET ACTIVITY F/UP GIVEN NURSE AT BEDSIDE Plan discussed with: Patient WYATT TORRES MD May 09, 2025 18:19
[2025-05-09] MEDS ORDERED: POLY335015 PO (20:35)
== END 2025-05-09 19:53 | disposition home or self-care (01) | DRG 385 ==
LOC: ER 17:52 → OVERFLOW 23:07 → EAST 05-07 02:18
PROVIDERS: ADMIT Internal Medicine Geriatric Medicine; ATTEND Surgery
PROC: 0H9U0ZX Drainage of Left Breast, Open Approach, Diagnostic (ICD-10-PCS; principal; 2025-05-08 10:23)
DX: N61.1 Abscess of the breast and nipple (principal); E66.9 Obesity, unspecified; Z68.35 Body mass index [BMI] 35.0-35.9, adult; E78.2 Mixed hyperlipidemia; Z88.8 Allergy status to other drugs, medicaments and biological substances; Z82.49 Family history of ischemic heart disease and other diseases of the circulatory system; Z80.3 Family history of malignant neoplasm of breast; Z80.41 Family history of malignant neoplasm of ovary; Z79.899 Other long term (current) drug therapy
CPT/HCPCS: 36415; 71045; 76642; 80048; 80053; 80061; 80076; 80307; 81001; 81025; 82140; 82306; 82607; 83036; 83605; 83690; 83735; 84100; 84443; 85025; 85610; 85730; 86141; 86850; 86900; 86901; 87040; 87070; 87075; 87081; 87086; 87205; G0378; J1100; J2250; J2543; J2704; J3490

== ENCOUNTER 2025-05-30 21:37 | Inpatient (IN) | payer MEDICAID ==
[~2025-05-30] VITALS: Ht 157.5 cm; Wt 82.5 kg
[~2025-05-30 21:37] MED LIST changes: +AUG875T PO; -AZIT500T66 PO; -CLIN1CAP70 PO; +DOXY1CAP57 PO; +ERGO1CAP12 PO; -IBUP-1456 PO; +OMEG-86 PO; +POLY335015 PO; +TIRZ5INJ2 SC
[2025-05-30] MEDS ORDERED: SODIUM CHLORIDE 0.9% 1,500 ML IV ONE (22:00)
--- NOTE | 2025-05-30 22:14 | ED.PDOC ---
General HPI Comments 39-year-old female presented to the ER with a chief complaint of bilateral flank pain for the past week. Patient reports that she is experiencing bilateral flank pain for the past 6 days, radiating to the groin, associated with frequency, urgency, dysuria and murky urine. She reports fevers and chills for the past 2 days, associated with nausea. But no episodes of vomiting. She has a chronic UTIs in the past, and was recently in this facility for breast abscesses requiring I and D and IV antibiotics, later discharged on azithromycin doxy, completed antibiotics approximately 2 weeks back. Patient went to the urgent care today and was prescribed Macrobid, she took 1 dose. Given the lower back pain and fever, she decided to check in the ER. On arrival, patient is tachycardic with a 102 F temperature. Right-sided CVA tenderness. Abdomen is hypoactive, denies passing gas, last bowel movement 05/28. 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 Chief Complaint: Flank Pain Time Seen by MD: 21:43 Primary Care Provider: CHRISTINE Allergies: Coded Allergies: Vancomycin (Verified Allergy, Severe, 05/08/25) Home Meds Active Scripts Polyethylene Glycol 3350 (Miralax) 17 Gm Pow, 17 GM PO DAILYP PRN, #10 POW 0 Refills Prov:JULIA ARAYA RESIDENT 05/09/25 Doxycycline Monohydrate (Doxycycline Monohydrate) 100 Mg Cap, 1 CAP PO BID, #14 CAP Prov:EMILE PARRISH MD 05/09/25 Amoxicillin & Pot Clavulanate (AUGMENTIN TABLET) 875 Mg Tb, 875 MG PO BID for 7 Days, #14 TAB Prov:EMILE PARRISH MD 05/09/25 Reported Medications Pdmxz-7-[id number] Ethyl Esters (Ajiev-4-Xnwf Ethyl Esters) 1 Gm Cap, 2 CAP PO DAILY 05/07/25 Ergocalciferol (Vitamin D) 50,000 Unit Cap, 1 CAP PO QWEEKLY 05/07/25 Tirzepatide (Zepbound) 5 Mg/0.5 Ml Inj, 5 MG SC QWEEKLY 05/07/25 Mode of Arrival: Ambulatory Past Medical History 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 Family History Family History: Reviewed,noncontributory to illness Social History Smoker: Non-Smoker Alcohol: Denies ETOH Use Drugs: Denies Drug Use Lives In: Home Constitutional: reports: chills, fever EENTM: denies: blurred vision, double vision, ear bleeding, ear discharge, ear drainage, ear pain, ear ringing, eye pain, eye redness, hearing loss, mouth pain, mouth swelling, nasal discharge, nose bleeding, nose congestion, nose pain, photophobia, tearing, throat pain, throat swelling, voice changes, others Respiratory: denies: cough, hemoptysis, orthopnea, SOB at rest, shortness of breath, SOB with excertion, stridor, wheezing, others Cardiovascular: denies: chest pain, dizzy spells, diaphoresis, Dyspnea on exertion, edema, irregular heart beat, left arm pain, lightheadedness, palpitations, PND, syncope, others Gastrointestinal: reports: abdominal pain, nausea Genitourinary: reports: burning, dysuria, frequency, urgency Neurological: denies: dizziness, fainting, headache, left sided numbness, left sided weakness, numbness, paresthesia, pre-existing deficit, right sided numbness, right sided weakness, seizure, speech problems, tingling, tremors, weakness, others Integumetry: denies: bruises, change in color, change in hair/nails, dryness, laceration, lesions, lumps, rash, wounds, others Allergic/Immunocompromised: denies: Difficulty Healing, Frequent Infections, Hives, Itching, others Hematologic/Lymphatic: denies: anemia, blood clots, easy bleeding, easy bruising, swollen glands, others Endocrine: denies: excessive hunger, excessive sweating, excessive thirst, excessive urination, flushing, intolerance to cold, intolerance to heat, unexplained weight gain, unexplained weight loss, others Psychiatric: denies: anxiety, bipolar disorder, depression, hopeless, panic disorder, schizophrenia, sleepless, suicidal, others Physical Exam General Appearance: No Apparent Distress, Normal HEENT: Pharynx Normal Neck: NOT DONE Respiratory: No Accessory Muscle Use, No Respiratory Distress, Normal Breath Sounds Cardiovascular: No Edema, No Murmur, Regular Rate/Rhythm Breast Exam: Deferred Gastrointestinal: Other (Right CVA tenderness, hypoactive bowel) Genitalia: Deferred Pelvic: Deferred Rectal: Deferred Extremities: No calf tenderness, Normal capillary refill, Normal inspection, Normal range of motion, Non-tender, No pedal edema Neurologic: NOT DONE Cerebellar Function: NOT DONE Reflexes: NOT DONE Skin: Dry Lymphatic: NOT DONE Was a procedure done? Was a procedure done?: No Differential Diagnosis Kidney stone (Female): Bowel obstruction, Musculoskeletal pain, Renal failure, Urinary obstruction, Urolithiasis Kidney stone (Male): Pyelonephritis X-Ray, Labs, Meds, VS Vital Signs Date Time Temp Pulse Resp B/P (MAP) Pulse Ox O2 Delivery O2 Flow Rate FiO2 05/30/25 22:40 102.6 05/30/25 21:37 102.6 116 18 154/95 98 102.6 Lab Test 05/30/25 23:02 05/30/25 22:24 Range/Units Urine Color Yellow Yellow Urine Clarity Turbid H Clear Urine pH 6.0 5.0-9.0 Urine Specific [place] 1.016 1.001-1.035 Urine Protein 1+ H Negative Urine Ketones Negative Negative Urine Blood 1+ H Negative /uL Urine Nitrite Negative Negative Urine Bilirubin Negative Negative Urine Urobilinogen Normal Negative mg/dL Urine Leukocyte Esterase 2+ Negative /uL Urine RBC 6 0 - 4 /hpf Urine Microscopic WBC 35 H 0-5 /HPF Urine Squamous Epithelial Cells Few <5 /hpf Urine Bacteria Few H None Seen /hpf Urine Hyaline Casts Few 0 - 2 /lpf Urine Mucus Few None Seen Urine Glucose Normal Normal mg/dL Urine Test Negative Negative White Blood Count 13.2 H 4.4-10.8 10^3/uL Red Blood Count 4.71 4.0-5.20 10^6/uL Hemoglobin 13.7 12.2-16.2 g/dL Hematocrit 39.9 36.0-46.0 % Mean Corpuscular Volume 84.6 80.0-100.0 fL Mean Corpuscular Hemoglobin 29.0 28.0-32.0 pg Mean Corpuscular Hemoglobin Concent 34.3 32.0-36.0 g/dL Red Cell Distribution Width 13.5 11.8-14.3 % Platelet Count 227 140-450 10^3/uL Mean Platelet Volume 8.0 6.9-10.8 fL Neutrophils (%) (Auto) 80.0 37.0-80.0 % Lymphocytes (%) (Auto) 11.7 10.0-50.0 % Monocytes (%) (Auto) 7.5 0.0-12.0 % Eosinophils (%) (Auto) 0.1 0.0-7.0 % Basophils (%) (Auto) 0.7 0.0-2.0 % Neutrophils # (Auto) 10.6 H 1.6-8.6 10 ^3/uL Lymphocytes # (Auto) 1.5 0.4-5.4 10 ^3/uL Monocytes # (Auto) 1.0 0-1.3 10 ^3/uL Eosinophils # (Auto) 0 0-0.8 10 ^3/uL Basophils # (Auto) 0.1 0-0.2 10 ^3/uL Nucleated Red Blood Cells 0.0 % Sodium Level 136 136-145 mmol/L Potassium Level 3.2 L 3.5-5.1 mmol/L Chloride Level 98 98-107 mmol/L Carbon Dioxide Level 25 20-31 mmol/L Anion Gap 13 5-15 Blood Urea Nitrogen 8 L 9-23 mg/dL Creatinine 0.87 0.550-1.02 mg/dL Glomerular Filtration Rate Calc 87 >90 mL/min BUN/Creatinine Ratio 9.2 L 10.0-20.0 Serum Glucose 121 H 74-106 mg/dL Lactic Acid Level 1.8 0.4-2.0 mmol/L Calcium Level 9.5 8.7-10.4 mg/dL Total Bilirubin 1.4 H 0.2-1.0 mg/dL Aspartate Amino Transferase (AST) 14 13-40 U/L Alanine Aminotransferase (ALT) 14 7-40 U/L Alkaline Phosphatase 67 46-116 U/L Total Protein 8.5 H 5.7-8.2 g/dL Albumin 4.8 3.2-4.8 g/dL Current Medications Medications (Trade) Dose Ordered Sig/Brenda Route Start Time Stop Time Status Last Admin Acetaminophen (Tylenol Tablet) 650 mg ONCE ONCE PO 05/30/25 22:00 05/30/25 22:01 DC 05/30/25 22:40 Ketorolac Tromethamine (Toradol Injection) 15 mg ONCE ONCE IV 05/30/25 22:00 05/30/25 22:15 DC 05/30/25 22:52 Piperacillin Sod/ Tazobactam Sod 100 ml @ 100 mls/hr ONCE ONCE IV 05/30/25 22:00 05/30/25 22:59 DC 05/30/25 22:53 Sodium Chloride 1,000 ml @ 1,000 mls/hr Q1H ONCE IV 05/30/25 22:30 05/30/25 23:29 DC 05/30/25 22:53 X-Ray, Labs, Meds, VS Comment CT abdomen pelvis pending Time of 1ST Reevaluation: 00:30 Reevaluation 1ST: Unchanged Consultation: PCP Patient Education/Counseling: Diagnosis, Treatment Family Education/Counseling: Diagnosis, Treatment SEPSIS Sepsis Screen Date sepsis recognized/suspect: May 30, 2025 Time Sepsis recognized/suspect: 2136 Recent Procedure: No On Antibiotic Therapy: Yes Respiratory Rate >20: No Heart Rate >90: Yes Temp<36 C (96.8 F) or >38.3 C: Yes SBP <90 or MAP <65 mmHG: No New Acute Mental Status Change: No Is the patient on CPAP, BIPAP,: No Physician Orders Blood Culture (05/30/25 21:57) Ct Ab Pel Wo Con-No Oral Or Iv (05/30/25 21:57) Urine Bacterial Culture (05/30/25 22:13) Potassium Chl 20meq/100ml (05/30/25 23:30) Vital Signs Date Time Temp Pulse Resp B/P (MAP) Pulse Ox O2 Delivery O2 Flow Rate FiO2 05/30/25 22:40 102.6 05/30/25 21:37 102.6 116 18 154/95 98 102.6 Laboratory Tests Test 05/30/25 22:24 Lactic Acid Level 1.8 mmol/L (0.4-2.0) White Blood Count 13.2 10^3/uL (4.4-10.8) H Medications Medications Dose Ordered Sig/Brenda Route Start Time Stop Time Status Last Admin Dose Admin Acetaminophen 650 mg ONCE ONCE PO 05/30/25 22:00 05/30/25 22:01 DC 05/30/25 22:40 Ketorolac Tromethamine 15 mg ONCE ONCE IV 05/30/25 22:00 05/30/25 22:15 DC 05/30/25 22:52 Piperacillin Sod/ Tazobactam Sod 100 ml @ 100 mls/hr ONCE ONCE IV 05/30/25 22:00 05/30/25 22:59 DC 05/30/25 22:53 Sodium Chloride 1,000 ml @ 1,000 mls/hr Q1H ONCE IV 05/30/25 22:30 05/30/25 23:29 DC 05/30/25 22:53 Departure 1 Departure Time of Disposition: 00:30 Impression: Primary Impression: UTI (urinary tract infection) Disposition: ADMITTED INPATIENT Condition: Fair Comments Patient will be admitted for further workup and management of UTI, likely pyelonephritis, she will require IV antibiotics. CT abdomen and urine culture are pending. Critical Care Note Critical Care Time?: No Stability Stability form required: AKI Lew RESIDENT May 30, 2025 22:14
[2025-05-30 22:38] LABS: Hematocrit 39.9 % (36.0-46.0); Hemoglobin 13.7 g/dL (12.2-16.2); Mean Corpuscular Hemoglobin 29.0 pg (28.0-32.0); Mean Corpuscular Volume 84.6 fL (80.0-100.0); Nucleated Red Blood Cells % 0.0 %
[2025-05-30] MEDS: ACETAMINOPHEN 325 MG TAB PO ONE (22:40)
[2025-05-30] MEDS: KETOROLAC TROMETH 30 MG/ML 1ML VIAL IV ONE (22:52)
[2025-05-30] MEDS: SODIUM CHLORIDE 0.9% 1,000 ML IV ONE (22:53)
[2025-05-30] MEDS: PIPERACILLIN-TAZOB 3.375GM 100 ML IV ONE (22:53)
[2025-05-30 22:59] LABS: Alanine Aminotransferase 14 U/L (7-40); Albumin 4.8 g/dL (3.2-4.8); Alkaline Phosphatase 67 U/L (46-116); Anion Gap 13 (5-15); BUN/Creatinine Ratio 9.2 (10.0-20.0); Calcium 9.5 mg/dL (8.7-10.4); Carbon Dioxide 25 mmol/L (20-31); Chloride 98 mmol/L (98-107)
[2025-05-30 23:02] LABS: Bilirubin, Total 1.4 mg/dL (0.2-1.0); Blood Urea Nitrogen 8 mg/dL (9-23); Glucose 121 mg/dL (74-106); Potassium 3.2 mmol/L (3.5-5.1); Sodium 136 mmol/L (136-145); Total Protein 8.5 g/dL (5.7-8.2)
[2025-05-30] MEDS: POTASSIUM CHL 20MEQ/100ML 100 ML IV ONE (23:30)
[2025-05-30 23:33] LABS: Urine Protein, UAD 1+ (Negative)
[2025-05-31] VITALS (7 sets, daily range): BP systolic 94–119; BP diastolic 50–77; PULSE 10–120; RESP 12–28; TEMP 99.6–102.8; O2SAT 95–98
--- NOTE | 2025-05-31 00:55 | DVH ---
Exam: CT CT AB PEL WO CON-NO ORAL OR IV History: Bilateral flank pain Comparison Study: None Technique: Multidetector spiral CT of the abdomen was performed from lung bases to pubic symphysis. I maging was performed without IV contrast. Axial, coronal and sagittal multiplanar reformats were obta ined from the axial data set by the technologist. Radiation Dose : 1. Abdomen/Pelvis: CTDIvol 20.03 mGy, DLP 1269.23 mGy*cm. Findings: Evaluation of solid organs is limited due to lack of intravenous contrast use. Lung Bases: No acute or significant lung base finding. Normal heart size. No pleural or pericardial effusion. Liver: The liver is normal in size. No focal lesions. Gallbladder and Biliary Tree: Unremarkable Spleen: Unremarkable Pancreas: The pancreas is grossly normal in appearance. Adrenal Glands: Unremarkable Kidneys: Mild left perinephric edema. No stone or hydronephrosis. Right kidney appears unremarkable o n unenhanced CT. Bladder: Grossly unremarkable for degree of distention. Bowel: The stomach is grossly normal in appearance. Small bowel and colon are normal in caliber and d istribution. Normal appendix is visualized in the right lower quadrant without findings of appendicit is. Ascites: Absent Lymphadenopathy: No mesenteric, retroperitoneal or periportal lymphadenopathy. Abdominal Wall and Mesentery: Unremarkable. Vasculature: The visualized abdominal aorta is normal in size and caliber. Evaluation of abdominal a nd pelvic vessels is limited due to lack of intravenous contrast. Pelvic Organs: Unremarkable Musculoskeletal: No aggressive focal bony lesions, acute fractures or dislocation. IMPRESSION: Left-sided perinephric edema without obstructing stone or hydronephrosis. This could represents pyelo nephritis. Right kidney appears unremarkable although assessment is limited without contrast. Radiation optimization: All CT scans at this facility use at least one of these dose optimization lynn hniques: automated exposure control mA and/or kV adjustment per patient size (includes targeted exam s where dose is matched to clinical indication) or iterative reconstruction.
[2025-05-31] MEDS: SODIUM CHLORIDE 0.9% 1,500 ML IV ONE (01:15)
--- NOTE | 2025-05-31 01:43 | DVHHPRES ---
History of Present Illness Resident Creating Document: LORRAINE ROBLES History of Present Illness Anna Barajas it is a 39-year-old female patient who presents to ED with chief complaint of back pain, chills, nausea, suprapubic pressure, urinary urgency and frequency and fever for the past two days. Denies any other associated symptom. Past medical history: Breast abscess status post incision and drainage approximately two months ago, vitamin-D deficiency Surgical history: Incision and drainage Family history: Breast cancer in aunt, grandmother. Uterine cancer and. Social history: Lives in [place] with family (next of kin is oswald). Denies current tobacco, alcohol and other drug abuse Allergies: Vancomycin Home medication: Vitamin-D, Zepbound Patient seen and examined at bedside. Currently has no new complaints. Patient admitted for further management Past Medical History Per HPI Past Surgical History Per HPI Family History Per HPI Past Social History Per HPI Review of Systems Review of Systems Per HPI Allergies: Coded Allergies: Vancomycin (Verified Allergy, Severe, 05/08/25) Exam Vital Signs Vital Signs Date Time Temp Pulse Resp B/P (MAP) Pulse Ox O2 Delivery O2 Flow Rate FiO2 05/31/25 01:06 98.7 76 16 83/51 (62) 97 98.7 Exam Patient lying in bed, in no acute distress General: Lucid, febrile, mucosae are moist Cardiovascular: Normal S1 and S2. No murmurs, gallops or rubs Respiratory: Normal ventilation mechanics. Clear lung sounds on auscultation Abdomen: Soft, suprapubic tenderness on palpation rest of abdomen nontender, no organomegaly, normal bowel sounds. Breast exam: Deferred since patient did not have private room : Left Costovertebral tenderness on percussion MSK/skin: Mobilizes 4 limbs. Skin is dry and warm Neurological: Oriented in 3 spheres. No motor no sensitive deficits. Pupils are isocoric and reactive Labs/Xrays Labs Test 05/30/25 23:02 05/30/25 22:24 Range/Units Urine Color Yellow Yellow Urine Clarity Turbid H Clear Urine pH 6.0 5.0-9.0 Urine Specific [place] 1.016 1.001-1.035 Urine Protein 1+ H Negative Urine Ketones Negative Negative Urine Blood 1+ H Negative /uL Urine Nitrite Negative Negative Urine Bilirubin Negative Negative Urine Urobilinogen Normal Negative mg/dL Urine Leukocyte Esterase 2+ Negative /uL Urine RBC 6 0 - 4 /hpf Urine Microscopic WBC 35 H 0-5 /HPF Urine Squamous Epithelial Cells Few <5 /hpf Urine Bacteria Few H None Seen /hpf Urine Hyaline Casts Few 0 - 2 /lpf Urine Mucus Few None Seen Urine Glucose Normal Normal mg/dL Urine Test Negative Negative White Blood Count 13.2 H 4.4-10.8 10^3/uL Red Blood Count 4.71 4.0-5.20 10^6/uL Hemoglobin 13.7 12.2-16.2 g/dL Hematocrit 39.9 36.0-46.0 % Mean Corpuscular Volume 84.6 80.0-100.0 fL Mean Corpuscular Hemoglobin 29.0 28.0-32.0 pg Mean Corpuscular Hemoglobin Concent 34.3 32.0-36.0 g/dL Red Cell Distribution Width 13.5 11.8-14.3 % Platelet Count 227 140-450 10^3/uL Mean Platelet Volume 8.0 6.9-10.8 fL Neutrophils (%) (Auto) 80.0 37.0-80.0 % Lymphocytes (%) (Auto) 11.7 10.0-50.0 % Monocytes (%) (Auto) 7.5 0.0-12.0 % Eosinophils (%) (Auto) 0.1 0.0-7.0 % Basophils (%) (Auto) 0.7 0.0-2.0 % Neutrophils # (Auto) 10.6 H 1.6-8.6 10 ^3/uL Lymphocytes # (Auto) 1.5 0.4-5.4 10 ^3/uL Monocytes # (Auto) 1.0 0-1.3 10 ^3/uL Eosinophils # (Auto) 0 0-0.8 10 ^3/uL Basophils # (Auto) 0.1 0-0.2 10 ^3/uL Nucleated Red Blood Cells 0.0 % Sodium Level 136 136-145 mmol/L Potassium Level 3.2 L 3.5-5.1 mmol/L Chloride Level 98 98-107 mmol/L Carbon Dioxide Level 25 20-31 mmol/L Anion Gap 13 5-15 Blood Urea Nitrogen 8 L 9-23 mg/dL Creatinine 0.87 0.550-1.02 mg/dL Glomerular Filtration Rate Calc 87 >90 mL/min BUN/Creatinine Ratio 9.2 L 10.0-20.0 Serum Glucose 121 H 74-106 mg/dL Lactic Acid Level 1.8 0.4-2.0 mmol/L Calcium Level 9.5 8.7-10.4 mg/dL Total Bilirubin 1.4 H 0.2-1.0 mg/dL Aspartate Amino Transferase (AST) 14 13-40 U/L Alanine Aminotransferase (ALT) 14 7-40 U/L Alkaline Phosphatase 67 46-116 U/L Total Protein 8.5 H 5.7-8.2 g/dL Albumin 4.8 3.2-4.8 g/dL SEPSIS Sepsis Screen Date sepsis recognized/suspect: May 30, 2025 Time Sepsis recognized/suspect: 2136 Recent Procedure: No On Antibiotic Therapy: Yes Respiratory Rate >20: No Heart Rate >90: Yes Temp<36 C (96.8 F) or >38.3 C: Yes SBP <90 or MAP <65 mmHG: No New Acute Mental Status Change: No Is the patient on CPAP, BIPAP,: No Physician Orders Blood Culture (05/30/25 21:57) Ct Ab Pel Wo Con-No Oral Or Iv (05/30/25 21:57) Urine Bacterial Culture (05/30/25 22:13) Sodium Chloride 0.9% (05/31/25 01:15) Admit (05/31/25 01:35) Code Status (05/31/25:35) Acetaminophen Tablet (Tylenol Tablet) (05/31/25 01:45) Npo (Nothing By Mouth) Diet (05/31/25 Breakfast) Echo 2d Mode Cardiac Dop (05/31/25:35) Morphine Sulfate Injection (05/31/25 01:45) Lovenox 40mg (05/31/25 10:00) Oxygen By Nasal Cannula (05/31/25:35) Stat Ekg For Chest Pain (05/31/25:35) Notify Of Changes From Base (05/31/25 01:35) Agate Setter For 24 Hours (05/31/25 01:35) Emergency Dysrhythmia Protocol (05/31/25:35) Rhythm Strips Once Every Shift (05/31/25:35) Blood Alcohol (10/17/25 01:35) Vital Signs Date Time Temp Pulse Resp B/P (MAP) Pulse Ox O2 Delivery O2 Flow Rate FiO2 05/31/25 01:06 98.7 76 16 83/51 (62) 97 98.7 05/30/25 22:40 102.6 05/30/25 21:37 102.6 116 18 154/95 98 102.6 Laboratory Tests Test 05/30/25 22:24 Lactic Acid Level 1.8 mmol/L (0.4-2.0) White Blood Count 13.2 10^3/uL (4.4-10.8) H Medications Medications Dose Ordered Sig/Brenda Route Start Time Stop Time Status Last Admin Dose Admin Acetaminophen 650 mg ONCE ONCE PO 05/30/25 22:00 05/30/25 22:01 DC 05/30/25 22:40 650 MG Ketorolac Tromethamine 15 mg ONCE ONCE IV 05/30/25 22:00 05/30/25 22:15 DC 05/30/25 22:52 15 MG Piperacillin Sod/ Tazobactam Sod 100 ml @ 100 mls/hr ONCE ONCE IV 05/30/25 22:00 05/30/25 22:59 DC 05/30/25 22:53 100 MLS/HR Sodium Chloride 1,000 ml @ 1,000 mls/hr Q1H ONCE IV 05/30/25 22:30 05/30/25 23:29 DC 05/30/25 22:53 1,000 MLS/HR Assessment/Plan Assessment/Plan ASSESSMENT Sepsis secondary to pyelonephritis Left sided pyelonephritis Hypokalemia History of breast abscess status post incision and drainage PLAN Activated sepsis protocol. On IV fluids, empiric IV antibiotic (Zosyn) and obtain culture Ordered STI panel Completed abdomen and pelvis CT which showed left-sided pyelonephritis Ordered breast ultrasound Discontinue cefepime at this point Goals of care discussed with patient for over 18 minutes: Full code status Discussed plan with Dr. Walden, patient and nurses: Admitted the patient on telemetry. Currently under IV fluids and IV antibiotic, pending results of culture. Plan discussed with: Patient, Other (Nurses and fiancee) My Orders Orders - LORRAINE ROBLES RESIDENT Procedure Category Date Status Time Admit ADMIT 05/31/25 Verified 01:35 Code Status CODE 05/31/25 Verified 01:35 Acetaminophen Tablet PHA 05/31/25 Verified (Tylenol Tablet) 01:45 Npo (Nothing By DIET 05/31/25 Verified Mouth) Diet Breakfast Echo 2d Mode Cardiac US 05/31/25 Verified DOP 01:35 Morphine Sulfate [facility] 05/31/25 Verified Injection 01:45 Lovenox 40mg [facility] 05/31/25 Verified 10:00 Oxygen By Nasal RT 05/31/25 Verified Cannula 01:35 Stat Ekg For Chest [facility] 05/31/25 Verified Pain 01:35 Notify Md Of Changes [facility] 05/31/25 Verified From Base 01:35 Agate Setter For [facility] 05/31/25 Verified 24 Hours 01:35 Emergency Dysrhythmia [facility] 05/31/25 Verified Protocol 01:35 Rhythm Strips Once [facility] 05/31/25 Verified Every Shift 01:35 Blood Alcohol LAB 05/31/25 Verified 01:35 Date of Service: May 31, 2025 Billing Provider: GUANACO WALDEN MD Common Visit Codes: [id number] INP/OBS CARE (HIGH) Secondary Visit Codes: [id number] CARE PLAN 30 MINUTES LORRAINE ROBLES RESIDENT May 31, 2025 01:43
[2025-05-31] MEDS ORDERED: MORPHINE SULFATE INJ 2 MG/ml SYRG IV PRN (01:45)
[2025-05-31 02:26] LABS: INR 1.16 (0.9-1.15); Partial Thromboplastin Time 30.2 SEC (24.5-34.5); Prothrombin Time 12.1 sec (9.3-11.8)
[2025-05-31 05:25] LABS: Alanine Aminotransferase 12 U/L (7-40); Albumin 4.1 g/dL (3.2-4.8); Alkaline Phosphatase 56 U/L (46-116); Anion Gap 11 (5-15); BUN/Creatinine Ratio 8.2 (10.0-20.0); Carbon Dioxide 25 mmol/L (20-31); Chloride 106 mmol/L (98-107); Glucose 103 mg/dL (74-106); Magnesium 1.8 mg/dL (1.6-2.6); Sodium 142 mmol/L (136-145); Total Protein 7.3 g/dL (5.7-8.2); Triglycerides 114 mg/dL (< 150)
[2025-05-31 05:26] LABS: Cholesterol 153 mg/dL (< 200)
[2025-05-31 05:32] LABS: Bilirubin, Total 1.2 mg/dL (0.2-1.0); Blood Urea Nitrogen 6 mg/dL (9-23); Calcium 8.1 mg/dL (8.7-10.4); HDL Cholesterol 32 mg/dL (40-59); Potassium 3.4 mmol/L (3.5-5.1)
[2025-05-31 05:37] LABS: Hematocrit 34.2 % (36.0-46.0); Hemoglobin 11.4 g/dL (12.2-16.2); Mean Corpuscular Hemoglobin 28.6 pg (28.0-32.0); Mean Corpuscular Volume 85.8 fL (80.0-100.0); Nucleated Red Blood Cells % 0.0 %
[2025-05-31] MEDS: PIPERACILLIN-TAZOB 3.375GM 100 ML IV SCH (05:42)
[2025-05-31 05:46] LABS: Lipase 31 U/L (12-53)
[2025-05-31] MEDS: ACETAMINOPHEN 325 MG TAB PO PRN (09:03)
[2025-05-31] MEDS ORDERED: SIMETHICONE 40 MG/0.6 ML ORAL DROP ONE (09:22)
[2025-05-31] MEDS: ENOXAPARIN SOD 40 MG/0.4 ML SYRINGE SC SCH (10:00)
[2025-05-31] MEDS: SODIUM CHLORIDE 0.9% 1,000 ML IV SCH (10:26)
[2025-05-31] MEDS: POTASSIUM CHL 20MEQ/100ML 100 ML IV SCH (10:28)
--- NOTE | 2025-05-31 10:56 | DVH ---
US OF THE LEFT BREAST INDICATION: Breast sided pain TECHNIQUE: Targeted left breast ultrasound was performed. COMPARISON: Prior exam dated: 05/07/2025 FINDINGS: New superficial hypoechoic area in the left breast at 12 o'clock measuring 3.6 cm with hyperemia. Stephanie or left 3 o'clock abnormality not imaged on this exam. There are lymph nodes with thickened cortex in the left axilla. IMPRESSION: New superficial hypoechoic area in the left breast at 12 o'clock with hyperemia may represent phlegmo nous change. No drainable fluid collection. Recommend treatment and repeat bilateral diagnostic mamm ogram and left breast ultrasound in 1 month. ACR Bi Rads Category:Category 3
[2025-05-31 11:13] LABS: Amphetamine Screen, Urine Neg (NEGATIVE); Barbiturate Scree,Urine Neg (NEGATIVE); Benzodiazephine Screen, Urine Neg (NEGATIVE); Cannabinoid Screen, Urine Neg (NEGATIVE); Cocaine Screen, Urine Neg (NEGATIVE); Opiate Scree,Urine Neg (NEGATIVE); Phencyclidine Screen, Urine Neg (NEGATIVE)
[2025-05-31 11:18] LABS: Hepatitis B Surface Antigen Negative (Negative); Hepatitis C Antibody Negative (Negative)
[2025-05-31] MEDS: SODIUM CHLORIDE 0.9% 500 ML IV ONE (17:28)
[2025-05-31] MEDS: HYDROmorphone HCL 2 MG/ML VL/or syr IV ONE (19:30)
[2025-06-01] VITALS (7 sets, daily range): BP systolic 99–133; BP diastolic 50–88; PULSE 77–117; RESP 15–18; TEMP 97.8–100.2; O2SAT 95–98
--- NOTE | 2025-06-01 14:46 | DVHPN2 ---
Subjective The patient seen and examined at bedside. The patient is still very tired and had severe headache. Also complained of flank pain. Reviewed: Care Plan, H&P, Labs, Medications, Previous Orders, Radiology Changes from previous H/P or p: No Changes Objective Vitals Vital Signs Date Time Temp Pulse Resp B/P (MAP) Pulse Ox O2 Delivery O2 Flow Rate FiO2 06/01/25 13:00 97.8 77 18 133/88 (103) 96 97.8 05/31/25 23:03 Room Air* 0 21 Intake/Output Intake and Output 06/01/25 07:00 Intake Total 740 ml Balance 740 ml Intake Oral 240 ml IV Total 500 ml # Voids 3 General Appearance: Alert, Oriented X3, Cooperative, No acute distress HEENT: Atraumatic, PERRLA, EOMI, Mucous membr. moist/pink Neck: Supple Lungs: Clear to auscultation, Normal air movement Cardiovascular: Regular rate, Normal S1, Normal S2, No murmurs, Gallops, Rubs Abdomen: Normal bowel sounds, Soft, No tenderness Neuro: Cranial nerves 3-12 NL Psych/Mental Status: Mental status NL Medications Current Medications Medications Dose Ordered Sig/Brenda Route Start Time Stop Time Status Last Admin Dose Admin Acetaminophen 325 mg Q4HP PRN PO 05/31/25 01:45 06/01/25 10:36 325 MG Morphine Sulfate 2 mg Q4HPRN PRN IV 05/31/25 01:45 Enoxaparin Sodium 40 mg DAILY SC 05/31/25 10:00 06/01/25 10:36 40 MG Piperacillin Sod/ Tazobactam Sod 100 ml @ 25 mls/hr Q8HR IV 05/31/25 06:00 06/01/25 14:18 25 MLS/HR Sodium Chloride 1,000 ml @ 75 mls/hr [id number] IV 05/31/25 01:45 06/01/25 02:00 75 MLS/HR Laboratory Results Laboratory Tests 05/31/25 04:48 Urinalysis Test 05/30/25 23:02 Urine Color Yellow (Yellow) Urine Clarity Turbid (Clear) H Urine pH 6.0 (5.0-9.0) Urine Specific [place] 1.016 (1.001-1.035) Urine Protein 1+ (Negative) H Urine Ketones Negative (Negative) Urine Blood 1+ /uL (Negative) H Urine Nitrite Negative (Negative) Urine Bilirubin Negative (Negative) Urine Urobilinogen Normal mg/dL (Negative) Urine Leukocyte Esterase 2+ /uL (Negative) Urine RBC 6 /hpf (0 - 4) Urine Microscopic WBC 35 /HPF (0-5) H Urine Squamous Epithelial Cells Few /hpf (<5) Urine Bacteria Few /hpf (None Seen) H Urine Hyaline Casts Few /lpf (0 - 2) Urine Mucus Few (None Seen) Urine Glucose Normal mg/dL (Normal) Urine Test Negative (Negative) Microbiology Microbiology Date/Time Source Procedure Growth Status 05/30/25 23:02 Voided Urine Urine Culture - Preliminary Resulted 05/30/25 22:21 Blood Blood Culture - Preliminary NO GROWTH AFTER 24 HOURS OF INCUBATION. Resulted Labs and/or images reviewed: Labs reviewed by me Assessment/Plan Assessment/Plan Sepsis secondary to pyelonephritis Left sided pyelonephritis Hypokalemia History of breast abscess status post incision and drainage Abnormal imaging from the breast ultrasound showed: New superficial hypoechoic area in the left breast at 12 o'clock measuring 3.6 cm with hyperemia. Prior left 3 o'clock abnormality not imaged on this exam. There are lymph nodes with thickened cortex in the left axilla. It may represent phlegmonous change. No drainable fluid collection. Per radiologist's: The patient need treatment and repeat bilateral diagnostic mammogram and left breast ultrasound in 1 month. Continuing current management. Continuing IV Zosyn. We will follow up with urine culture. Discussed with patient regarding to history of breast abscess status post I&D. The patient need bilateral diagnostic mammogram and left breast ultrasound in one month after antibiotic done. This medical document was created using an electronic medical record system with [employer] direct computerized dictation system. Although this document has been carefully reviewed, there may still be some phonetic and typographical errors. These areas are purely typographical due to imperfections of the software programs, and do not reflect any compromise in the patient's medical care. Plan discussed with: Patient Date of Service: Jun 01, 2025 Billing Provider: DILSHAD SHERMAN MD Common Visit Codes: [id number] INP/OBS CARE(HIGH) DILSHAD SHERMAN MD Jun 01, 2025 14:46
[2025-06-01 16:07] LABS: Chlamydia Trachomatis, NAA Negative (Negative); Neisseria gonorrhoeae, NAA Negative (Negative)
[2025-06-01] MEDS ORDERED: HYDROcodone-ACET 5/325MG TAB PO PRN (16:30)
--- NOTE | 2025-06-01 16:48 | DVHSR ---
APPROVED REPORT EXAM: Two-dimensional and M-mode echocardiogram with Doppler and color Doppler. Blood Pressure: 102/64 mmHg INDICATION Sepsis RISK FACTORS Height: 5' 2", Weight: 195 DIMENSIONS LVDd4.4 (3.8-5.7cm)LA (2D)3.6 (1.9-4.0cm)Aortic Root3.2 (2.0-3.7cm) LVDs3.2 (2.5-4.0cm)LA (MM) (1.9-4.0cm)Aortic Cusp Exc1.8 (1.5-2.0cm) EF (%) 55.0 (55-70%)Rt. Atrium4.0 (1.9-4.0cm)Asc. Aorta cm IVSd1.0 (0.7-1.1cm)RV (D) (1.8-2.4cm) PWd1.1 (0.7-1.1cm) Mitral Valve MitralMitral Stenosis E wave1.00m/sMV Mean GR.mmHg A wave0.70m/sMV Peak GR.mmHg E/A ratio1.42D MVAcm2 Aortic Valve Aortic ValveAortic Stenosis V11.30m/Enrique Mean GR.5mmHg V21.50m/Enrique Peak GR.9mmHg LVOT Diameter2.1 (1.8-2.4cm)Doppler AVA3.00cm2 Pulmonic Valve V20.80m/s Conclusion Technically good study. Sinus rhythm. Normal chamber sizes. Valves are normal. EF of 60% with normal RV function. Dopplers unremarkable. No pericardial effusion masses or vegetations.
[2025-06-01] MEDS: ACETAMINOPHEN 325 MG TAB PO PRN (18:22)
[2025-06-01] MEDS: POTASSIUM CHL 20 Meq TABLET PO ONE (18:23)
[2025-06-02] VITALS (7 sets, daily range): BP systolic 96–107; BP diastolic 63–67; PULSE 61–92; RESP 16–19; TEMP 97.9–98.3; O2SAT 82–99
[2025-06-03 01:00] VITALS: BP 116/83; PULSE 83; RESP 19; TEMP 98.7; O2SAT 97
[2025-06-03 05:00] VITALS: BP 117/73; PULSE 95; RESP 19; TEMP 98.4; O2SAT 100
[2025-06-03 09:03] VITALS: BP 112/82; PULSE 78; RESP 20; TEMP 97.8; O2SAT 98
[2025-06-03] MEDS ORDERED: DOXY1CAP57 PO (11:46)
[2025-06-03] MEDS ORDERED: AUG875T PO (11:46)
--- NOTE | 2025-06-03 11:47 | DVHDS2 ---
Discharge Summary Date of Admission May 31, 2025 at 01:35 Date of Discharge: Jun 03, 2025 Admitting Diagnosis Sepsis secondary to pyelonephritis Left sided pyelonephritis Hypokalemia History of breast abscess status post incision and drainage Abnormal imaging from the breast ultrasound showed: New superficial hypoechoic area in the left breast at 12 o'clock measuring 3.6 cm with hyperemia. Prior left 3 o'clock abnormality not imaged on this exam. There are lymph nodes with thickened cortex in the left axilla. It may represent phlegmonous change. No drainable fluid collection. Per radiologist's: The patient need treatment and repeat bilateral diagnostic mammogram and left breast ultrasound in 1 month. Labs/Diagnostic Data: Laboratory Results Test 05/31/25 10:11 05/31/25 09:50 05/31/25 04:48 05/30/25 23:02 Urine Opiates Screen Neg (NEGATIVE) Urine Fentanyl Screen Neg (NEGATIVE) Urine Barbiturates Screen Neg (NEGATIVE) Urine Phencyclidine Screen Neg (NEGATIVE) Urine Amphetamines Screen Neg (NEGATIVE) Urine Benzodiazepines Screen Neg (NEGATIVE) Urine Cocaine Screen Neg (NEGATIVE) Urine Cannabinoids Screen Neg (NEGATIVE) Chlamydia trachomatis (YAHIR) Negative (Negative) Neisseria gonorrhoeae (YAHIR) Negative (Negative) Treponema pallidum Antibody Non-reactive (Negative) Hepatitis A IgM Antibody Negative Hepatitis B Surface Antigen Negative (Negative) Hepatitis B Core IgM Antibody Negative (Negative) Hepatitis C Antibody Negative (Negative) HIV (1&2) Antibody Negative (Negative) White Blood Count 13.4 10^3/uL (4.4-10.8) Red Blood Count 3.99 10^6/uL (4.0-5.20) Hemoglobin 11.4 g/dL (12.2-16.2) Hematocrit 34.2 % (36.0-46.0) Mean Corpuscular Volume 85.8 fL (80.0-100.0) Mean Corpuscular Hemoglobin 28.6 pg (28.0-32.0) Mean Corpuscular Hemoglobin Concent 33.4 g/dL (32.0-36.0) Red Cell Distribution Width 13.8 % (11.8-14.3) Platelet Count 205 10^3/uL (140-450) Mean Platelet Volume 8.2 fL (6.9-10.8) Neutrophils (%) (Auto) 80.3 % (37.0-80.0) Lymphocytes (%) (Auto) 11.4 % (10.0-50.0) Monocytes (%) (Auto) 7.9 % (0.0-12.0) Eosinophils (%) (Auto) 0.1 % (0.0-7.0) Basophils (%) (Auto) 0.3 % (0.0-2.0) Neutrophils # (Auto) 10.7 10 ^3/uL (1.6-8.6) Lymphocytes # (Auto) 1.5 10 ^3/uL (0.4-5.4) Monocytes # (Auto) 1.0 10 ^3/uL (0-1.3) Eosinophils # (Auto) 0 10 ^3/uL (0-0.8) Basophils # (Auto) 0 10 ^3/uL (0-0.2) Nucleated Red Blood Cells 0.0 % Sodium Level 142 mmol/L (136-145) Potassium Level 3.4 mmol/L (3.5-5.1) Chloride Level 106 mmol/L (98-107) Carbon Dioxide Level 25 mmol/L (20-31) Anion Gap 11 (5-15) Blood Urea Nitrogen 6 mg/dL (9-23) Creatinine 0.73 mg/dL (0.550-1.02) Glomerular Filtration Rate Calc 108 mL/min (>90) BUN/Creatinine Ratio 8.2 (10.0-20.0) Serum Glucose 103 mg/dL (74-106) Calcium Level 8.1 mg/dL (8.7-10.4) Phosphorus Level 3.5 mg/dL (2.4-5.1) Magnesium Level 1.8 mg/dL (1.6-2.6) Total Bilirubin 1.2 mg/dL (0.2-1.0) Aspartate Amino Transferase (AST) 14 U/L (13-40) Alanine Aminotransferase (ALT) 12 U/L (7-40) Alkaline Phosphatase 56 U/L (46-116) Ammonia < 10 umol/L (11-32) Total Protein 7.3 g/dL (5.7-8.2) Albumin 4.1 g/dL (3.2-4.8) Triglycerides Level 114 mg/dL (< 150) Cholesterol Level 153 mg/dL (< 200) LDL Cholesterol 108 mg/dL (< 100) HDL Cholesterol 32 mg/dL (40-59) Lipase 31 U/L (12-53) Vitamin B12 Level 513 pg/mL (211-911) Vitamin D 25-Hydroxy 37.4 ng/mL (30.0-100) Thyroid Stimulating Hormone (TSH) 0.81 uIU/mL (0.55-4.78) Urine Color Yellow (Yellow) Urine Clarity Turbid (Clear) Urine pH 6.0 (5.0-9.0) Urine Specific [place] 1.016 (1.001-1.035) Urine Protein 1+ (Negative) Urine Ketones Negative (Negative) Urine Blood 1+ /uL (Negative) Urine Nitrite Negative (Negative) Urine Bilirubin Negative (Negative) Urine Urobilinogen Normal mg/dL (Negative) Urine Leukocyte Esterase 2+ /uL (Negative) Urine RBC 6 /hpf (0 - 4) Urine Microscopic WBC 35 /HPF (0-5) Urine Squamous Epithelial Cells Few /hpf (<5) Urine Bacteria Few /hpf (None Seen) Urine Hyaline Casts Few /lpf (0 - 2) Urine Mucus Few (None Seen) Urine Glucose Normal mg/dL (Normal) Urine Test Negative (Negative) Test 05/30/25 22:24 Prothrombin Time 12.1 sec (9.3-11.8) Prothrombin Time INR 1.16 (0.9-1.15) Activated Partial Thromboplast Time 30.2 SEC (24.5-34.5) Lactic Acid Level 1.8 mmol/L (0.4-2.0) Plasma/Serum Blood Alcohol < 3.0 mg/dL (<10) Other Laboratory Tests 05/31/25 04:48 Brief Hx & Hospital Course: This is a 39 years old female with past medical history of back pain, breast abscess status post I&D about two months ago, came to emergency department because of severe flank pain and back pain. The patient also had chills, nausea, vomiting. She also complained of supra pubic pressor, urine urgency and frequency. And subjective fever for two days. The patient was admitted. The patient was found to have left side pyelonephritis per CT scan. Patient also had hypotension and WBC elevated. The patient has sepsis due to pyelonephritis. The patient was treated with IV Zosyn 3.375 g IV Q 8 hours. Patient also received IV fluid for fluid resuscitation. Her blood pressure become stable. No nausea or vomiting. No fever or chill. The patient also had an ultrasound breast which showed: New superficial hypoechoic area in the left breast at 12 o'clock with hyperemia may represent phlegmonous change. No drainable fluid collection. Recommend treatment and repeat bilateral diagnostic mammogram and left breast ultrasound in 1 month. Per patient she already had a bilateral diagnostic mammogram done two months ago. Patient is supposed to follow up with the surgeon for her breast abscess within one week. Advised the patient regarding to the ultrasound that she might need another diagnostic mammogram. The patient verbally understand and we will talk with her surgeon regarding to this finding. I am going to discharge the patient home today. We will prescribe oral antibiotic Augmentin and doxycycline for two weeks. Activity as tolerated. Diet per home diet. Follow up with breast surgeon per schedule. Follow up with primary care physician 1-2 weeks. Physical exam: HEENT: Normocephalic atraumatic pupils equal react to light and accommodation. Extraocular muscles intact, conjunctiva pink, oropharynx moist, no thrush, no exudate. Lymphatic: No lymphadenopathy Cardiovascular exam: S1, S2 was heard. No murmurs, rubs, gallops Lung: Clear on auscultation bilaterally, no wheeze, rale, rhonchi. GI: Abdominal soft, nondistended, nontenderness, positive bowel sounds. Extremity: No crepitus, cyanosis, edema. Pedal pulses present bilateral. Full range of motion. Skin: Normal turgor, no rash. Psych: Alert, oriented x3. Neurology: No focal deficits, cranial nerve II to XII grossly intact. This medical document was created using an electronic medical record system with [employer] direct computerized dictation system. Although this document has been carefully reviewed, there may still be some phonetic and typographical errors. These areas are purely typographical due to imperfections of the software programs, and do not reflect any compromise in the patient's medical care. Condition at Discharge: Stable Final Diagnosis/Problems List Sepsis secondary to pyelonephritis Left sided pyelonephritis Hypokalemia History of breast abscess status post incision and drainage Abnormal imaging from the breast ultrasound showed: New superficial hypoechoic area in the left breast at 12 o'clock measuring 3.6 cm with hyperemia. Prior left 3 o'clock abnormality not imaged on this exam. There are lymph nodes with thickened cortex in the left axilla. It may represent phlegmonous change. No drainable fluid collection. Per radiologist's: The patient need treatment and repeat bilateral diagnostic mammogram and left breast ultrasound in 1 month. Discharge Disposition: Home Discharge Instruct/Medications Diet: Regular Activity: No Restrictions, As Tolerated Follow Up/Referral: pcp 1-2 weeks Medications: see med list Scheduled Amoxicillin & Pot Clavulanate (Augmentin Tablet), 875 MG PO BID Doxycycline Monohydrate (Doxycycline Monohydrate), 1 CAP PO BID Ergocalciferol (Vitamin D), 1 CAP PO QWEEKLY, (Reported) Qojdh-1-Xqke Ethyl Esters (Hxblt-5-Rihq Ethyl Esters), 2 CAP PO DAILY, (Reported) Tirzepatide (Zepbound), 5 MG SC QWEEKLY, (Reported) Scheduled PRN Polyethylene Glycol 3350 (Miralax), 17 GM PO DAILYP PRN Discharge Statement: "Patient was advised to return to the ER or call 911 if any headaches, dizziness, shortness of breath, chest pain, abdominal pain, bleeding, fevers, or worsening of medical condition. Patient was counseled about treatment plan, medications, possible side effects, patientverbalized understanding. All questions were answered to the best of my ability. This discharge took greater then 30 minutes in planning, reviewing documentation, counseling the patient, and discussing with other team members." ASSESSMENT ASSESSMENT Assessment Pyelonephritis Date of Service: Jun 03, 2025 Billing Provider: DILSHAD SHERMAN MD Common Visit Codes: 64163-UFG/OBS DISCH DAY >30min DILSHAD SHERMAN MD Jun 03, 2025 11:47
--- NOTE | 2025-06-03 11:49 | DVHPN2 ---
Subjective The patient seen and examined at bedside. Minimal headache. Complains of back ache Reviewed: Care Plan, H&P, Labs, Medications, Previous Orders, Radiology Changes from previous H/P or p: No Changes Objective Vitals Vital Signs Date Time Temp Pulse Resp B/P (MAP) Pulse Ox O2 Delivery O2 Flow Rate FiO2 06/03/25 09:03 97.8 78 20 112/82 (92) 98 97.8 06/02/25 20:00 Room Air* 0 21 Intake/Output Intake and Output 06/03/25 07:00 Intake Total 1980 ml Balance 1980 ml Intake Oral 1880 ml IV Total 100 ml # Voids 7 General Appearance: Alert, Oriented X3, Cooperative, No acute distress HEENT: Atraumatic, PERRLA, EOMI, Mucous membr. moist/pink Neck: Supple Lungs: Clear to auscultation, Normal air movement Cardiovascular: Regular rate, Normal S1, Normal S2, No murmurs, Gallops, Rubs Abdomen: Normal bowel sounds, Soft, No tenderness Neuro: Cranial nerves 3-12 NL Psych/Mental Status: Mental status NL Medications Current Medications Medications Dose Ordered Sig/Brenda Route Start Time Stop Time Status Last Admin Dose Admin Morphine Sulfate 2 mg Q4HPRN PRN IV 05/31/25 01:45 Enoxaparin Sodium 40 mg DAILY SC 05/31/25 10:00 06/02/25 09:50 40 MG Piperacillin Sod/ Tazobactam Sod 100 ml @ 25 mls/hr Q8HR IV 05/31/25 06:00 06/03/25 05:06 25 MLS/HR Sodium Chloride 1,000 ml @ 75 mls/hr [id number] IV 05/31/25 01:45 06/03/25 09:53 75 MLS/HR Acetaminophen 650 mg Q4HP PRN PO 06/01/25 16:30 06/03/25 09:43 650 MG Acetaminophen/ Hydrocodone Bitart 1 tab Q4HPRN PRN PO 06/01/25 16:30 Laboratory Results Laboratory Tests 05/31/25 04:48 Urinalysis Test 05/30/25 23:02 Urine Color Yellow (Yellow) Urine Clarity Turbid (Clear) H Urine pH 6.0 (5.0-9.0) Urine Specific [place] 1.016 (1.001-1.035) Urine Protein 1+ (Negative) H Urine Ketones Negative (Negative) Urine Blood 1+ /uL (Negative) H Urine Nitrite Negative (Negative) Urine Bilirubin Negative (Negative) Urine Urobilinogen Normal mg/dL (Negative) Urine Leukocyte Esterase 2+ /uL (Negative) Urine RBC 6 /hpf (0 - 4) Urine Microscopic WBC 35 /HPF (0-5) H Urine Squamous Epithelial Cells Few /hpf (<5) Urine Bacteria Few /hpf (None Seen) H Urine Hyaline Casts Few /lpf (0 - 2) Urine Mucus Few (None Seen) Urine Glucose Normal mg/dL (Normal) Urine Test Negative (Negative) Microbiology Microbiology Date/Time Source Procedure Growth Status 05/30/25 23:02 Voided Urine Urine Culture - Final Complete 05/30/25 22:21 Blood Blood Culture - Preliminary NO GROWTH AFTER 72 HOURS OF INCUBATION. Resulted Labs and/or images reviewed: Labs reviewed by me, Image(s) reviewed by me Assessment/Plan Assessment/Plan Sepsis secondary to pyelonephritis Left sided pyelonephritis Hypokalemia History of breast abscess status post incision and drainage Abnormal imaging from the breast ultrasound showed: New superficial hypoechoic area in the left breast at 12 o'clock measuring 3.6 cm with hyperemia. Prior left 3 o'clock abnormality not imaged on this exam. There are lymph nodes with thickened cortex in the left axilla. It may represent phlegmonous change. No drainable fluid collection. Per radiologist's: The patient need treatment and repeat bilateral diagnostic mammogram and left breast ultrasound in 1 month. Continuing current management. Continuing IV Zosyn. We will follow up with urine culture. Discussed with patient regarding to history of breast abscess status post I&D. The patient need bilateral diagnostic mammogram and left breast ultrasound in one month after antibiotic done. This medical document was created using an electronic medical record system with [employer] flu[employer] direct computerized dictation system. Although this document has been carefully reviewed, there may still be some phonetic and typographical errors. These areas are purely typographical due to imperfections of the software programs, and do not reflect any compromise in the patient's medical care. Plan discussed with: Patient My Orders Orders - DILSHAD SHERMAN MD Procedure Category Date Status Time Discharge DISCHARGE 06/03/25 Transmitted 11:46 Complete Blood Count LAB 06/03/25 Transmitted 11:47 Basic Metabolic Panel LAB 06/03/25 Transmitted 11:47 Date of Service: Jun 02, 2025 Billing Provider: DILSHAD SHERMAN MD Common Visit Codes: [id number] INP/OBS CARE(HIGH) DILSHAD SHERMAN MD Jun 03, 2025 11:49
[2025-06-03 13:00] VITALS: BP 118/79; PULSE 74; RESP 20; TEMP 98; O2SAT 98
[2025-06-03 13:27] LABS: Hematocrit 33.7 % (36.0-46.0); Hemoglobin 11.3 g/dL (12.2-16.2); Mean Corpuscular Hemoglobin 29.0 pg (28.0-32.0); Mean Corpuscular Volume 86.5 fL (80.0-100.0); Nucleated Red Blood Cells % 0.0 %
[2025-06-03 13:36] LABS: Chloride 105 mmol/L (98-107); Potassium 3.5 mmol/L (3.5-5.1); Sodium 141 mmol/L (136-145)
[2025-06-03 13:37] LABS: Anion Gap 11 (5-15); Calcium 8.7 mg/dL (8.7-10.4); Carbon Dioxide 25 mmol/L (20-31)
[2025-06-03 13:42] LABS: BUN/Creatinine Ratio 9.0 (10.0-20.0); Blood Urea Nitrogen 6 mg/dL (9-23); Glucose 99 mg/dL (74-106)
== END 2025-06-03 13:45 | disposition home or self-care (01) | DRG 720 ==
LOC: ER 21:41 → OVERFLOW 05-31 01:35 → TELE-WESTW 05-31 21:35
PROVIDERS: ADMIT Internal Medicine; ATTEND Internal Medicine
DX: A41.9 Sepsis, unspecified organism (principal); R71.0 Precipitous drop in hematocrit; E87.6 Hypokalemia; N12 Tubulo-interstitial nephritis, not specified as acute or chronic; R73.03 Prediabetes; Z88.1 Allergy status to other antibiotic agents; Z80.3 Family history of malignant neoplasm of breast; Z80.59 Family history of malignant neoplasm of other urinary tract organ
CPT/HCPCS: 36415; 74176; 76642; 80048; 80053; 80061; 80074; 80307; 80320; 81001; 81025; 82140; 82306; 82607; 83605; 83690; 83735; 84100; 84443; 85025; 85610; 85730; 86703; 86780; 87040; 87086; 93306; 96365; 96375; G0378; J1885; J2543; J3480